=== PATIENT | female | born 1975 | race African-American/Black ===

== ENCOUNTER 2016-07-01 23:01 | Emergency (ER) | payer BC, OTHER ==
[2016-07-02] MEDS ORDERED: diphenhydrAMINE 50 MG CAP PO STA (01:45)
[2016-07-02] MEDS ORDERED: predniSONE 20 MG TAB PO STA (01:45)
--- NOTE | 2016-07-02 01:50 | ED ---
Skin/Abscess/FB HPI - General Chief complaint: Skin/Abscess/Foreign Body Stated complaint: Insect Bite Time Seen by Provider: 07/02/16 01:04 Source: patient, RN notes reviewed Mode of arrival: ambulatory Limitations: no limitations - History of Present Illness Initial comments: Patient is a 41-year-old female presents to the emergency room for evaluation of insect bite over right forearm. Patient states that she woke up from sleeping and noticed area of swelling over her forearm. Patient states she got bit by some sort of insect. Patient denies any history of ALLERGIC reactions to insect bites. Patient states throughout the day the areas gotten more and more swollen. Patient states she was at work and the area started to worry her so she thought she should be evaluated. Patient denies taking any Benadryl or applying any ointments over the area. Patient states the area itches and is slightly painful. Patient denies any redness or heat from the area. Patient denies any drainage or open sore from the area. Patient denies fevers or chills. - Related Data Home Medications Medication Instructions Recorded Confirmed Albuterol Inhaler [Ventolin Hfa 1 puff INHALATION DAILY PRN 09/20/14 11/22/15 Inhaler] Solifenacin Succinate [Vesicare] 5 mg PO QAM 09/20/14 11/22/15 Baclofen 30 mg PO TID 04/23/15 11/22/15 Cholecalciferol (Vitamin D3) 1 tab PO DAILY 04/23/15 11/22/15 [Vitamin D3] Loratadine [Claritin] 10 mg PO DAILY 04/23/15 11/22/15 predniSONE 20 mg PO BID 04/23/15 11/22/15 Previous Rx's Medication Instructions Recorded predniSONE 40 mg PO DAILY 3 Days 07/02/16 Allergies Allergy/AdvReac Type Severity Reaction Status Date / Time No Known Allergies Allergy Verified 07/01/16 23:15 Review of Systems ROS Statement: Those systems with pertinent positive or pertinent negative responses have been documented in the HPI. ROS Other: All systems not noted in ROS Statement are negative. Past Medical History Past Medical History: Asthma Additional Past Medical History / Comment(s): bipolar History of Any Multi-Drug Resistant Organisms: None Reported Past Surgical History: Tubal Ligation Additional Past Surgical History / Comment(s): D&C, cervical biopsy Past Psychological History: Bipolar Smoking Status: Current every day smoker Past Alcohol Use History: Occasional Past Drug Use History: Marijuana General Exam - General Exam Comments Initial Comments: Sitting in exam room in no acute distress. Limitations: no limitations General appearance: alert, in no apparent distress Head exam: Present: atraumatic, normocephalic, normal inspection Eye exam: Present: normal appearance ENT exam: Present: normal exam Neck exam: Present: normal inspection Respiratory exam: Absent: respiratory distress Right Forearm Wrist exam: Present: full ROM, other (2 cm circular erythematous area over the mid forearm small puncture wound. No drainage from the site. No redness or heat on palpating over the area. Nonfluctuant.) Hand Wrist exam: Present: normal inspection, full ROM. Absent: tenderness Neuro motor exam: Present: wrist extension intact, thumb opposition intact, thumb IP flexion intact, thumb adduction intact, fingers 2-5 abduction intact Vascular: Present: normal capillary refill (Capillary refill less than 2 seconds ), radial pulse (2+), ulnar pulse (2+) Back exam: Present: normal inspection Neurological exam: Present: alert, oriented X3, CN II-XII intact, normal gait Psychiatric exam: Present: normal affect, normal mood Skin exam: Present: warm, dry, intact, normal color. Absent: rash Course Vital Signs 07/01/16 07/02/16 23:13 01:56 Temperature 98.4 F 98 F Pulse Rate 79 78 Respiratory 16 18 Rate Blood Pressure 129/70 129/68 O2 Sat by Pulse 98 98 Oximetry Medical Decision Making - Medical Decision Making Patient is a 41-year-old female presents to the emergency room for evaluation of insect bite. Insect bite slightly edematous. Patient given Benadryl and prednisone. Advised patient to return for worsening symptoms, heat or redness from the area or fevers. Patient states she understands everything that was discussed with her. Case discussed with Dr. Yeung. Disposition Clinical Impression: Insect bite Disposition: HOME SELF-CARE Condition: Good Instructions: Insect Bite or Sting (ED) Additional Instructions: Take Benadryl every 4-6 hours. Take prednisone as directed. Please follow up with primary care provider in 1-2 days. If any new symptom arises, symptoms worsen or fever develops, return to ER as soon as possible. Prescriptions: predniSONE 40 mg PO DAILY 3 Days Referrals: Aislinn Aviles MD [Primary Care Provider] - 1-2 days Time of Disposition: 01:51
[2016-07-02 01:57] VITALS: BP 129/68; PULSE 78; RESP 18; TEMP 98
== END 2016-07-02 01:57 | disposition home or self-care (01) ==
LOC: EC 23:01
DX: S51.831A Puncture wound without foreign body of right forearm, initial encounter (principal); J45.909 Unspecified asthma, uncomplicated; F17.200 Nicotine dependence, unspecified, uncomplicated; Z79.52 Long term (current) use of systemic steroids; Z79.899 Other long term (current) drug therapy; W57.XXXA Bitten or stung by nonvenomous insect and other nonvenomous arthropods, initial encounter
CPT/HCPCS: 99281 ×2; J7512

== ENCOUNTER 2016-07-05 07:50 | Emergency (ER) | payer BC, OTHER ==
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
[2016-07-05 09:06] VITALS: BP 125/75; PULSE 72; RESP 16; TEMP 98.1
== END 2016-07-05 09:21 | disposition home or self-care (01) ==
LOC: EC 07:50
DX: S40.022A Contusion of left upper arm, initial encounter (principal); S40.021A Contusion of right upper arm, initial encounter; Y04.2XXA Assault by strike against or bumped into by another person, initial encounter; Y92.009 Unspecified place in unspecified non-institutional (private) residence as the place of occurrence of the external cause; H11.32 Conjunctival hemorrhage, left eye; S20.479A Other superficial bite of unspecified back wall of thorax, initial encounter; S01.312A Laceration without foreign body of left ear, initial encounter; Y04.1XXA Assault by human bite, initial encounter; R51 Headache; Z79.899 Other long term (current) drug therapy; F17.200 Nicotine dependence, unspecified, uncomplicated
CPT/HCPCS: 70450; 72125; 99284

== ENCOUNTER 2016-10-25 20:36 | Emergency (ER) | payer BC, OTHER ==
[2016-10-25 20:50] VITALS: BP 112/79; PULSE 103; RESP 18; TEMP 97.8
[2016-10-25] MEDS ORDERED: KETOROLAC 30 MG/ML 1 ML VIAL IM STA (21:05)
[2016-10-25] MEDS ORDERED: predniSONE 20 MG TAB PO STA (21:06)
--- NOTE | 2016-10-25 21:11 | ED ---
Back Pain [facility] - General Chief Complaint: Extremity Problem,Nontraumatic Stated Complaint: THIGH PAIN/SCIATICA Time Seen by Provider: 10/25/16 20:57 Source: patient Mode of arrival: ambulatory Limitations: no limitations - History of Present Illness Initial Comments: Patient is a 41-year-old female presenting to the emergency department with chief complaint of acute on chronic lumbar sacral back pain radiating into her right buttocks. Patient states that earlier today she was leaning over to catch her neighbors dog when she felt a sharp pain in her right buttocks. Patient states that pain has persisted throughout the day. Patient currently rates pain 7 out of 10, described as pulling and burning, exacerbated with sitting down and walking, relieved with laying down. No treatment prior to arrival. Patient states she has an appointment to see her primary care physician for problems with sciatica next week. Patient states she is taking naproxen and Flexeril at home but hasn't taken any today. Patient denies recent illness, fevers, nausea, vomiting, shortness of breath, chest pain, or abdominal pain. Patient denies urinary or fecal incontinence, or saddle anesthesia. Patient denies recent IV drug abuse or steroid intake. - Related Data Home Medications Medication Instructions Recorded Confirmed Albuterol Inhaler [Ventolin Hfa 1 puff INHALATION DAILY PRN 09/20/14 10/25/16 Inhaler] Cholecalciferol (Vitamin D3) 1 tab PO DAILY 04/23/15 10/25/16 [Vitamin D3] Loratadine [Claritin] 10 mg PO DAILY 04/23/15 10/25/16 Albuterol Nebulized [Ventolin 2.5 mg INHALATION Q6H 10/25/16 10/25/16 Nebulized] Cyclobenzaprine [Flexeril] 5 mg PO BID 10/25/16 10/25/16 Ipratropium [place] [Atrovent Hfa] 2 puff INHALATION QID PRN 10/25/16 10/25/16 Naproxen [Naproxen] 500 mg PO BID 10/25/16 10/25/16 Omeprazole [PriLOSEC] 20 mg PO DAILY 10/25/16 10/25/16 Previous Rx's Medication Instructions Recorded methylPREDNISolone Dose Pack 4 mg PO DIRECTED #21 package 10/25/16 [Medrol Dose Pack] Allergies Allergy/AdvReac Type Severity Reaction Status Date / Time No Known Allergies Allergy Verified 10/25/16 20:50 Review of Systems ROS Statement: Those systems with pertinent positive or pertinent negative responses have been documented in the HPI. ROS Other: All systems not noted in ROS Statement are negative. Past Medical History Past Medical History: Asthma, GERD/Reflux Additional Past Medical History / Comment(s): bipolar, test pos for TB, however has had testing and yrly xray with neg results since 2002, pt states she has several herniated/bulging discs in lower back History of Any Multi-Drug Resistant Organisms: None Reported Past Surgical History: Tubal Ligation Additional Past Surgical History / Comment(s): D&C, cervical biopsy Past Psychological History: Bipolar Smoking Status: Former smoker Past Alcohol Use History: Occasional Past Drug Use History: None Reported General Exam Limitations: no limitations General appearance: alert, in no apparent distress Head exam: Present: atraumatic, normocephalic Eye exam: Present: normal appearance. Absent: scleral icterus, conjunctival injection, periorbital swelling, periorbital tenderness ENT exam: Present: normal exam, mucous membranes moist, normal external ear exam Neck exam: Present: normal inspection, full ROM. Absent: tenderness, lymphadenopathy Respiratory exam: Present: normal lung sounds bilaterally. Absent: respiratory distress, wheezes, rales, rhonchi Cardiovascular Exam: Present: regular rate, tachycardia, normal heart sounds. Absent: systolic murmur GI/Abdominal exam: Present: soft, normal bowel sounds. Absent: tenderness Extremities exam: Present: normal inspection, full ROM, normal capillary refill. Absent: tenderness Back exam: Present: paraspinal tenderness (Right-sided), other (Pulses palpable) . Absent: full ROM (Decreased range of motion with flexion and extension.), CVA tenderness (R), CVA tenderness (L), vertebral tenderness Expanded Back exam: Present: saddle anesthesia, other (No foot drop noted) Back exam: Sciatic Notch Tenderness: Right, Negative Straight Leg Raising: Left , Right Neurological exam: Present: alert, oriented X3, abnormal gait (Antalgic). Absent: other (No neurological deficits noted) Psychiatric exam: Present: normal affect, normal mood Skin exam: Present: warm, dry, intact, normal color Course Vital Signs 10/25/16 20:44 Temperature 97.8 F Pulse Rate 103 H Respiratory 18 Rate Blood Pressure 112/79 O2 Sat by Pulse 98 Oximetry Medical Decision Making - Medical Decision Making Acute on chronic back pain with right-sided sciatica. Patient given 1 dose of Toradol IM and instructed to continue Flexeril and naproxen at home. Patient instructed to follow-up with primary care physician. Patient instructed to follow-up with orthopedic service for possible physical therapy if pain persists. Patient instructed to return to the emergency department if symptoms do not improve or get worse. Discharge instructions and return parameters reviewed. Disposition Clinical Impression: Sciatica of right side associated with disorder of lumbosacral spine Disposition: HOME SELF-CARE Condition: Good Instructions: Sciatica (ED), Piriformis Syndrome (ED), Lower Back Exercises (ED ) Additional Instructions: Continue Medrol Dosepak and muscle relaxers as needed. Continue Tylenol for pain. Follow-up with primary care physician as already scheduled. Follow-up with orthopedic service if symptoms persist. Please return to the emergency department with any new or worsening symptoms. Prescriptions: methylPREDNISolone Dose Pack [Medrol Dose Pack] 4 mg PO DIRECTED #21 package Referrals: Aislinn Aviles MD [Primary Care Provider] - 1-2 days Jos Carlin MD [STAFF PHYSICIAN] - 1-2 days Time of Disposition: 21:11
== END 2016-10-25 21:22 | disposition home or self-care (01) ==
LOC: EC 20:36
DX: M54.31 Sciatica, right side (principal); M48.9 Spondylopathy, unspecified; K21.9 Gastro-esophageal reflux disease without esophagitis; J45.909 Unspecified asthma, uncomplicated; Z79.1 Long term (current) use of non-steroidal anti-inflammatories (NSAID); Z79.899 Other long term (current) drug therapy; Z87.891 Personal history of nicotine dependence
CPT/HCPCS: 99283; 96372; J1885; J7512

== ENCOUNTER 2017-05-01 22:07 | Emergency (ER) | payer OTHER ==
[2017-05-01 22:12] VITALS: BP 128/68; PULSE 76; RESP 18; TEMP 98.2
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
--- NOTE | 2017-05-01 23:02 | XR ---
EXAMINATION TYPE: XR foot complete RT DATE OF EXAM: 05/01/2017 COMPARISON: NONE HISTORY: Pain TECHNIQUE: 3 views FINDINGS: Metatarsals are intact. There is a moderate-sized plantar calcaneal spur. I see no fracture nor dislocation. IMPRESSION: Calcaneal spurring. No fracture. No evidence of inflammatory arthritis.
== END 2017-05-01 22:56 | disposition home or self-care (01) ==
LOC: EC 22:07
DX: M77.31 Calcaneal spur, right foot (principal); Z87.891 Personal history of nicotine dependence; Z79.899 Other long term (current) drug therapy
CPT/HCPCS: 99283

== ENCOUNTER 2017-06-21 12:55 | Emergency (ER) | payer OTHER ==
[2017-06-21 13:07] VITALS: BP 140/63; PULSE 88; RESP 20; TEMP 97.8
--- NOTE | 2017-06-21 13:15 | ED ---
General Adult HPI - General Chief complaint: Extremity Injury, Lower Stated complaint: Swollen R Ankle Time Seen by Provider: 06/21/17 13:09 Source: patient, RN notes reviewed Mode of arrival: ambulatory Limitations: no limitations - History of Present Illness Initial comments: Patient 42-year-old female who presents emergency room today with a chief complaint of injury to the right ankle that occurred last night. She is not sure how she injured it. She does not that she was drinking. She believes she rolled appear does have pain over the medial and lateral aspects of the right ankle. She states is worse with ambulation. She denies any other injury or complaints. Patient denies any recent fever, chills, shortness of breath, chest pain, back pain, abdominal pain, nausea or vomiting, numbness or tingling, headaches or visual changes, or any other complaints. - Related Data Home Medications Medication Instructions Recorded Confirmed Albuterol Inhaler [Ventolin Hfa 1 - 2 puff INHALATION RT-Q6H PRN 09/20/14 Inhaler] Loratadine [Claritin] 10 mg PO DAILY PRN 04/23/15 05/01/17 Albuterol Nebulized [Ventolin 2.5 mg INHALATION RT-Q6H PRN 10/25/16 05/01/17 Nebulized] Ipratropium [place] [Atrovent Hfa] 2 puff INHALATION RT-QID PRN 10/25/16 Naproxen [Naproxen] 500 mg PO BID PRN 10/25/16 05/01/17 Omeprazole [PriLOSEC] 20 mg PO BID PRN 10/25/16 05/01/17 Ergocalciferol (Vitamin D2) 50,000 unit PO CHU 05/01/17 05/01/17 [Vitamin D2] Previous Rx's Medication Instructions Recorded Ibuprofen [Motrin] 600 mg PO Q6HR PRN #30 day 06/21/17 Allergies Allergy/AdvReac Type Severity Reaction Status Date / Time No Known Allergies Allergy Verified 06/21/17 13:07 Review of Systems ROS Statement: Those systems with pertinent positive or pertinent negative responses have been documented in the HPI. ROS Other: All systems not noted in ROS Statement are negative. Past Medical History Past Medical History: Asthma, GERD/Reflux Additional Past Medical History / Comment(s): bipolar, test pos for TB, however has had testing and yrly xray with neg results since 2002, pt states she has several herniated/bulging discs in lower back History of Any Multi-Drug Resistant Organisms: None Reported Past Surgical History: Tubal Ligation Additional Past Surgical History / Comment(s): D&C, cervical biopsy Past Psychological History: Bipolar Smoking Status: Former smoker Past Alcohol Use History: Occasional Past Drug Use History: Marijuana General Exam - General Exam Comments Initial Comments: General: The patient is awake and alert, in no distress, and does not appear acutely ill. Neck: The neck is supple, there is no tenderness or JVD. Musculoskeletal: Patient does have some mild swelling down over the lateral aspect of the right ankle. She shows good range of motion both plantar and dorsiflexion. No tenderness to the right knee. No tenderness down into the digits. Mild tenderness over the fourth and fifth proximal metatarsal. Sensations are intact. Patient does have mild tenderness over medial malleolus. No tenderness over the lateral. Increased tenderness greatest in the ATFL area. Pulses equal bilaterally 2+ Neurological: A&O x 3. CN II-XII intact, There are no obvious motor or sensory deficits. Coordination appears grossly intact. Speech is normal. Skin: Skin is warm and dry and no rashes or lesions are noted. Psychiatric: Normal mood and affect. Limitations: no limitations Course Vital Signs 06/21/17 13:04 Temperature 97.8 F Pulse Rate 88 Respiratory 20 Rate Blood Pressure 140/63 O2 Sat by Pulse 99 Oximetry Medical Decision Making - Medical Decision Making Patient's x-rays have been reviewed and are negative for any acute fracture dislocation. Results were discussed with the patient. Patient given Aircast splint here in the emergency room for stability when up and moving around. Advised not to sleep with this on. Advised to follow-up with the family doctor or orthopedics for repeat x-rays in 7-10 days if symptoms persist. Advised to ice elevate the affected area and use ibuprofen for pain advised return for any other concerns. Disposition Clinical Impression: Ankle sprain Disposition: HOME SELF-CARE Condition: Good Instructions: Ankle Sprain (ED) Additional Instructions: Please continue to ice elevate the affected area at least 4 times daily for 20 minutes at a time. Please use splint when up and moving around but do not sleep with it on. Please follow-up the family doctor or orthopedics in 7-10 days if symptoms persist for repeat x-rays as discussed. Please use ibuprofen for pain. Please return to emergency room for any other concerns. Prescriptions: Ibuprofen [Motrin] 600 mg PO Q6HR PRN #30 day PRN Reason: Pain Referrals: Aislinn Aviles MD [Primary Care Provider] - 1-2 days Jos Carlin MD [STAFF PHYSICIAN] - 1-2 days Time of Disposition: 13:44
--- NOTE | 2017-06-21 13:35 | XR ---
EXAMINATION TYPE: XR foot complete RT, XR ankle complete RT , 6 VIEWS DATE OF EXAM ORDERED: 06/21/2017 HISTORY: Pain. COMPARISON: Previous study dated 05/01/2017. FINDINGS: No fracture, dislocation or other acute osseous lesion is seen about the foot. There is a plantar calcaneal spur. Osseous structures about the ankle are normal. No fracture, dislocation or ankle joint effusion is se en. There are phleboliths in the anterior soft tissues of the lower leg. IMPRESSION: 1. NO ACUTE OSSEOUS LESION. 2. PLANTAR CALCANEAL SPUR.
== END 2017-06-21 14:08 | disposition home or self-care (01) ==
LOC: EC 12:55
DX: S93.401A Sprain of unspecified ligament of right ankle, initial encounter (principal); Z87.891 Personal history of nicotine dependence; Z79.899 Other long term (current) drug therapy; X58.XXXA Exposure to other specified factors, initial encounter
CPT/HCPCS: 99283

== ENCOUNTER 2017-07-02 18:54 | Emergency (ER) | payer OTHER ==
[2017-07-02 19:07] VITALS: RESP 18
[2017-07-02] MEDS ORDERED: SODIUM CHLORIDE 0.9% 500 ML IV STA (19:14)
[2017-07-02] MEDS ORDERED: KETOROLAC 30 MG/ML 1 ML VIAL IVP STA (19:14)
--- NOTE | 2017-07-02 19:27 | ED ---
General Adult HPI - General Source: patient, RN notes reviewed Mode of arrival: ambulatory Limitations: no limitations <Manjeet Lara - Last Filed: 07/02/17 21:08> <Phillip Yeung - Last Filed: 07/02/17 21:53> - General Chief complaint: Abdominal Pain Stated complaint: Abd Pain Time Seen by Provider: 07/02/17 19:00 - History of Present Illness Initial comments: This is a 42-year-old female presents emergency Department complaining of right lower pelvic pain. Patient states it was sudden onset 4:00 while she was at work. Patient states it made her nauseated and she vomited times one. Patient states she also has some loose bowel movements this morning. Patient states she has no upper abdominal pain whatsoever. Patient denies any chest pain difficulty breathing shortness breath per patient denies any recent fever chills or cough. Patient denies any dysuria hematuria urinary frequency. Patient denies any patient denies numbness weakness. Patient denies any vaginal bleeding or abnormal discharge. (Manjeet Lara) - Related Data Home Medications Medication Instructions Recorded Confirmed Albuterol Inhaler [Ventolin Hfa 1 - 2 puff INHALATION RT-Q6H PRN 09/20/14 Inhaler] Loratadine [Claritin] 10 mg PO DAILY PRN 04/23/15 07/02/17 Albuterol Nebulized [Ventolin 2.5 mg INHALATION RT-Q6H PRN 10/25/16 07/02/17 Nebulized] Ipratropium [place] [Atrovent Hfa] 2 puff INHALATION RT-BID PRN 10/25/16 Omeprazole [PriLOSEC] 20 mg PO BID PRN 10/25/16 07/02/17 Ergocalciferol (Vitamin D2) 50,000 unit PO CHU 05/01/17 07/02/17 [Vitamin D2] Acetaminophen Tab [Tylenol Tab] 650 mg PO Q6H PRN 07/02/17 07/02/17 Cyclobenzaprine [Flexeril] 10 mg PO BID 07/02/17 07/02/17 Diclofenac Sodium [Voltaren] 75 mg PO BID 07/02/17 07/02/17 Ferrous Sulfate [Feosol] 650 mg PO DAILY 07/02/17 07/02/17 Allergies Allergy/AdvReac Type Severity Reaction Status Date / Time No Known Allergies Allergy Verified 07/02/17 19:22 Review of Systems ROS Other: All systems not noted in ROS Statement are negative. <Manjeet Lara - Last Filed: 07/02/17 21:08> ROS Other: All systems not noted in ROS Statement are negative. <Phillip Yeung - Last Filed: 07/02/17 21:53> ROS Statement: Those systems with pertinent positive or pertinent negative responses have been documented in the HPI. Past Medical History Past Medical History: Asthma, GERD/Reflux Additional Past Medical History / Comment(s): bipolar, test pos for TB, however has had testing and yrly xray with neg results since 2002, pt states she has several herniated/bulging discs in lower back History of Any Multi-Drug Resistant Organisms: None Reported Past Surgical History: Tubal Ligation, Uterine Ablation Additional Past Surgical History / Comment(s): D&C, cervical biopsy Past Psychological History: Bipolar Smoking Status: Former smoker Past Alcohol Use History: Occasional Past Drug Use History: Marijuana <LaraManjeet - Last Filed: 07/02/17 21:08> General Exam Limitations: no limitations <LaraManjeet - Last Filed: 07/02/17 21:08> <AnjanaPhillip - Last Filed: 07/02/17 21:53> - General Exam Comments Initial Comments: GENERAL: Patient is well-developed and well-nourished. Patient is nontoxic and well- hydrated and is in mild distress. ENT: Neck is soft and supple. No significant lymphadenopathy is noted. Oropharynx is clear. Moist mucous membranes. Neck has full range of motion without eliciting any pain. EYES: The sclera were anicteric and conjunctiva were pink and moist. Extraocular movements were intact and pupils were equal round and reactive to light. Eyelids were unremarkable. PULMONARY: Unlabored respirations. Good breath sounds bilaterally. No audible rales rhonchi or wheezing was noted. CARDIOVASCULAR: There is a regular rate and rhythm without any murmurs gallops or rubs. ABDOMEN: Patient has some right pelvic tenderness. No palpable organomegaly was noted. There is no palpable pulsatile mass. SKIN: Skin is clear with no lesions or rashes and otherwise unremarkable. NEUROLOGIC: Patient is alert and oriented x3. Cranial nerves II through XII are grossly intact. Motor and sensory are also intact. Normal speech, volume and content. Symmetrical smile. MUSCULOSKELETAL: Normal extremities with adequate strength and full range of motion. No lower extremity swelling or edema. No calf tenderness. LYMPHATICS: No significant lymphadenopathy is noted PSYCHIATRIC: Normal psychiatric evaluation. (Manjeet Lara) Vital Signs 07/02/17 07/02/17 19:03 20:40 Temperature 98.9 F Pulse Rate 78 69 Respiratory 18 18 Rate Blood Pressure 120/70 111/62 O2 Sat by Pulse 99 98 Oximetry Medical Decision Making - Lab Data Result diagrams: 07/02/17 19:44 07/02/17 19:44 <Manjeet Lara - Last Filed: 07/02/17 21:08> - Lab Data Result diagrams: 07/02/17 19:44 07/02/17 19:44 <Phillip Yeung - Last Filed: 07/02/17 21:53> - Medical Decision Making Physical be taking over the care of this patient at 9 PM (Manjeet Lara) - Lab Data Lab Results 07/02/17 07/02/17 07/02/17 Range/Units 19:44 19:44 19:44 WBC 12.5 H (3.8-10.6) k/uL RBC 4.45 (3.80-5.40) m/uL Hgb 13.7 (11.4-16.0) gm/dL Hct 39.5 (34.0-46.0) % MCV 88.8 (80.0-100.0) fL MCH 30.8 (25.0-35.0) pg MCHC 34.7 (31.0-37.0) g/dL RDW 12.7 (11.5-15.5) % Plt Count 466 H (150-450) k/uL Neutrophils % 82 % Lymphocytes % 12 % Monocytes % 3 % Eosinophils % 1 % Basophils % 0 % Neutrophils # 10.3 H (1.3-7.7) k/uL Lymphocytes # 1.5 (1.0-4.8) k/uL Monocytes # 0.4 (0-1.0) k/uL Eosinophils # 0.2 (0-0.7) k/uL Basophils # 0.1 (0-0.2) k/uL Sodium 140 (137-145) mmol/L Potassium 4.2 (3.5-5.1) mmol/L Chloride 107 (98-107) mmol/L Carbon Dioxide 25 (22-30) mmol/L Anion Gap 8 mmol/L BUN 10 (7-17) mg/dL Creatinine 0.70 (0.52-1.04) mg/dL Est GFR (CKD-EPI)AfAm >90 (>60 ml/min/1.73 sqM) Est GFR (CKD-EPI)NonAf >90 (>60 ml/min/1.73 sqM) Glucose 92 (74-99) mg/dL Calcium 9.9 (8.4-10.2) mg/dL Total Bilirubin 0.2 (0.2-1.3) mg/dL AST 16 (14-36) U/L ALT 20 (9-52) U/L Alkaline Phosphatase 65 (38-126) U/L Total Protein 7.5 (6.3-8.2) g/dL Albumin 4.4 (3.5-5.0) g/dL Amylase 60 (30-110) U/L Lipase 184 (23-300) U/L Urine Color Yellow Urine Appearance Cloudy H (Clear) Urine pH 6.5 (5.0-8.0) Ur Specific [place] 1.027 (1.001-1.035) Urine Protein 1+ H (Negative) Urine Glucose (UA) Negative (Negative) Urine Ketones Negative (Negative) Urine Blood Negative (Negative) Urine Nitrite Negative (Negative) Urine Bilirubin Negative (Negative) Urine Urobilinogen <2.0 (<2.0) mg/dL Ur Leukocyte Esterase Negative (Negative) Urine RBC 12 H (0-5) /hpf Urine WBC 3 (0-5) /hpf Ur Squamous Epith Cells 3 (0-4) /hpf Calcium Oxalate Crystal Occasional H (None) /hpf Hyaline Casts 4 H (0-2) /lpf Urine Mucus Many H (None) /hpf Disposition <Manjeet Lara - Last Filed: 07/02/17 21:08> <Phillip Yeung - Last Filed: 07/02/17 21:53> Clinical Impression: Abdominal pain, Hematuria Disposition: HOME SELF-CARE Condition: Good Instructions: Abdominal Pain (ED), Hematuria (ED) Referrals: Aislinn Aviles MD [Primary Care Provider] - 1-2 days
[2017-07-02 19:55] LABS: Basophils # (A) 0.1 k/uL (0-0.2); Basophils % (A) 0 %; Eosinophils # (A) 0.2 k/uL (0-0.7); Eosinophils % (A) 1 %; HCT 39.5 % (34.0-46.0); HGB 13.7 gm/dL (11.4-16.0); Lymphocytes # (A) 1.5 k/uL (1.0-4.8); Lymphocytes % (A) 12 %; MCH 30.8 pg (25.0-35.0); MCHC 34.7 g/dL (31.0-37.0); MCV 88.8 fL (80.0-100.0); Mean Platelet Volume 6.6; Monocytes # (A) 0.4 k/uL (0-1.0); Monocytes % (A) 3 %; Neutrophils # (A) 10.3 k/uL (1.3-7.7); Neutrophils % (A) 82 %; Platelet Count 466 k/uL (150-450); RBC 4.45 m/uL (3.80-5.40); RDW 12.7 % (11.5-15.5); WBC 12.5 k/uL (3.8-10.6)
[2017-07-02 19:58] LABS: Appearance,Urine Cloudy (Clear); Bilirubin,Urine Negative (Negative); Blood,Urine Negative (Negative); Calcium Oxalate Crystals,Urine Occasional /hpf; Color,Urine Yellow; Glucose,Urine (UA) Negative (Negative); Hyaline Casts,Urine 4 /lpf (0-2); Ketones,Urine Negative (Negative); Leukocyte Esterase,Urine Negative (Negative); Mucus,Urine Many /hpf; PH, Urine 6.5 (5.0-8.0); Protein,Urine 1+ (Negative); RBC,Urine 12 /hpf (0-5); Specific Gravity,Urine 1.027 (1.001-1.035); Squamous Epithelial Cell,Urine 3 /hpf (0-4); Urobilinogen,Urine <2.0 mg/dL (<2.0); WBC,Urine 3 /hpf (0-5)
[2017-07-02 20:09] LABS: ALT 20 U/L (9-52); AST 16 U/L (14-36); Albumin 4.4 g/dL (3.5-5.0); Alkaline Phosphatase 65 U/L (38-126); Amylase 60 U/L (30-110); Anion Gap 8 mmol/L; Blood Urea Nitrogen 10 mg/dL (7-17); Calcium 9.9 mg/dL (8.4-10.2); Carbon Dioxide 25 mmol/L (22-30); Chloride 107 mmol/L (98-107); Glucose 92 mg/dL (74-99); Lipase 184 U/L (23-300); Potassium 4.2 mmol/L (3.5-5.1); Sodium 140 mmol/L (137-145); Total Bilirubin 0.2 mg/dL (0.2-1.3); Total Protein 7.5 g/dL (6.3-8.2)
--- NOTE | 2017-07-02 21:02 | US ---
EXAMINATION TYPE: US transvaginal DATE OF EXAM: 07/02/2017 COMPARISON: NONE CLINICAL HISTORY: Pain. RLQ and pelvic pain. Patient had a uterine ablation. TECHNIQUE: Transvaginal (TV). EXAM MEASUREMENTS: Uterus: 7.8 x 4.5 x 4.2 cm Endometrial Stripe: Not well visualized. Right Ovary: 3.1 x 1.6 x 1.6 cm Left Ovary: 2.9 x 1.4 x 2.0 cm 1. Uterus: Anteverted Anechoic area seen measuring .3 x .6 x .6cm 2. Endometrium: Not well visualized 3. Right Ovary: wnl 4. Left Ovary: wnl Spectral, color and waveform doppler imaging shows good arterial and venous flow within the ovaries ; 5. Bilateral Adnexa: wnl 6. Posterior cul-de-sac: wnl Heterogenous uterus. Anechoic round area seen in uterus measuring .3 x .6 x .6cm. Possible small cyst IMPRESSION: Heterogeneous uterus, no significant finding is seen to palpation symptoms. Endometrium n ot well visualized after ablation.
--- NOTE | 2017-07-02 21:35 | CT ---
EXAMINATION TYPE: CT abdomen pelvis wo con DATE OF EXAM: 07/02/2017 HISTORY: Generalized pain with nausea and hematuria CT DLP: 465.7 mGycm. Automated Exposure Control for Dose Reduction was Utilized. TECHNIQUE: CT scan of the abdomen and pelvis is performed without oral or IV contrast. COMPARISON: CT abdomen and pelvis May 31, 2014 FINDINGS: Within the limitations of a non-contrast study, the following observations are made. LUNG BASES: No significant abnormality is appreciated. LIVER/GB: No significant abnormality is appreciated. PANCREAS: No significant abnormality is seen. SPLEEN: No significant abnormality is seen. ADRENALS: No significant abnormality is seen. KIDNEYS: No renal stones or hydronephrosis is present bilaterally. No intraluminal calculus is seen w ithin bladder. BOWEL: No suspicious small or large bowel dilatation. Normal-appearing appendix is seen in the right upper pelvis from cecum GENITAL ORGANS:. Scattered pelvic phleboliths are redemonstrated. Anteverted uterus is seen. LYMPH NODES: No greater than 1cm abdominal or pelvic lymph nodes are appreciated. OSSEOUS STRUCTURES: No significant abnormality is seen. OTHER: No significant additional abnormality is seen. IMPRESSION: No renal stones or hydronephrosis is seen bilaterally. No suspicious acute finding identi fied on noncontrast study.
[2017-07-02 22:17] VITALS: BP 120/73; PULSE 74; TEMP 98.3
== END 2017-07-02 22:16 | disposition home or self-care (01) ==
LOC: EC 18:54
DX: R10.2 Pelvic and perineal pain (principal); R31.9 Hematuria, unspecified; R11.2 Nausea with vomiting, unspecified; Z87.891 Personal history of nicotine dependence; Z79.899 Other long term (current) drug therapy; Z79.1 Long term (current) use of non-steroidal anti-inflammatories (NSAID)
CPT/HCPCS: 36415; 80053; 82150; 83690; 85025; 81001; 93975; 76830; 74176; 99284; 96374; 96361; J1885

== ENCOUNTER 2017-07-06 21:15 | Emergency (ER) | payer OTHER ==
[2017-07-06 21:22] VITALS: BP 116/62; PULSE 71; RESP 18; TEMP 98.6
[2017-07-06] MEDS ORDERED: ACETAMINOPHEN TAB 500 MG TAB PO STA (21:46)
[2017-07-06] MEDS ORDERED: IBUPROFEN 600 MG TAB PO STA (21:46)
--- NOTE | 2017-07-06 21:52 | ED ---
General Adult HPI - General Chief complaint: ENT Stated complaint: sore throat Time Seen by Provider: 07/06/17 21:26 Source: patient, RN notes reviewed Mode of arrival: ambulatory Limitations: no limitations - History of Present Illness Initial comments: 42-year-old female presents to the emergency department with a chief complaint of cough and congestion. She states she's been sick for like 3 days now. She states that she felt fever is but never took it. She states no nausea vomiting no cough. There is just been congestion sore throat. Patient's significant other had similar like symptoms. There is concerned due to the continued congestion so she thought that she should be seen. Patient denies any recent fever, chills, shortness of breath, chest pain, back pain, abdominal pain, nausea vomiting, numbness or tingling, dysuria or hematuria, constipation or diarrhea, headaches or visual changes, or any other current symptoms. - Related Data Home Medications Medication Instructions Recorded Confirmed Albuterol Inhaler [Ventolin Hfa 1 - 2 puff INHALATION RT-Q6H PRN 09/20/14 Inhaler] Loratadine [Claritin] 10 mg PO DAILY PRN 04/23/15 07/06/17 Albuterol Nebulized [Ventolin 2.5 mg INHALATION RT-Q6H PRN 10/25/16 07/06/17 Nebulized] Ipratropium [place] [Atrovent Hfa] 2 puff INHALATION RT-BID PRN 10/25/16 Omeprazole [PriLOSEC] 20 mg PO BID PRN 10/25/16 07/06/17 Ergocalciferol (Vitamin D2) 50,000 unit PO CHU 05/01/17 07/06/17 [Vitamin D2] Acetaminophen Tab [Tylenol Tab] 650 mg PO Q6H PRN 07/02/17 07/06/17 Cyclobenzaprine [Flexeril] 10 mg PO BID 07/02/17 07/06/17 Diclofenac Sodium [Voltaren] 75 mg PO BID 07/02/17 07/06/17 Ferrous Sulfate [Feosol] 650 mg PO DAILY 07/02/17 07/06/17 Previous Rx's Medication Instructions Recorded predniSONE 50 mg PO DAILY #3 tab 07/06/17 Allergies Allergy/AdvReac Type Severity Reaction Status Date / Time No Known Allergies Allergy Verified 07/06/17 21:35 Review of Systems ROS Statement: Those systems with pertinent positive or pertinent negative responses have been documented in the HPI. ROS Other: All systems not noted in ROS Statement are negative. Past Medical History Past Medical History: Asthma, GERD/Reflux Additional Past Medical History / Comment(s): bipolar, test pos for TB, however has had testing and yrly xray with neg results since 2002, pt states she has several herniated/bulging discs in lower back History of Any Multi-Drug Resistant Organisms: None Reported Past Surgical History: Tubal Ligation, Uterine Ablation Additional Past Surgical History / Comment(s): D&C, cervical biopsy Past Psychological History: Bipolar Smoking Status: Former smoker Past Alcohol Use History: Occasional Past Drug Use History: Marijuana General Exam - General Exam Comments Initial Comments: General exam: Alert, active, comfortable in no apparent distress Head: Normocephalic Eyes: Normal reaction of pupils, equal size, normal range of extraocular motion Ears: normal external ear canals, pink tympanic membranes with normal cone of light Nose: clear with pink turbinates Throat: no erythema or exudates with normal sized tonsils Neck: no masses, no nuchal rigidity Chest: no chest wall deformity Lungs: equal air entry with no crackles or wheeze CVS: S1 and S2 normal with no audible mumurs, regular rhythm Abdomen: no hepatosplenomegaly, normal bowel sounds, no guarding or rigidity Spine: no scoliosis or deformity Skin: no rashes Neurological: No focal deficits, tone is normal in all 4 extremities Limitations: no limitations Course Vital Signs 07/06/17 21:19 Temperature 98.6 F Pulse Rate 71 Respiratory 18 Rate Blood Pressure 116/62 O2 Sat by Pulse 100 Oximetry Medical Decision Making - Medical Decision Making 42-year-old female presents for cough and congestion. At this time we discussed most likely due to a viral like syndrome. We discussed continuing Motrin Tylenol. We discussed return parameters and follow-up and all questions. Patient family stated they understood and management this plan. All questions have been answered. This time the patient will be discharged home. - Lab Data Lab Results 07/06/17 07/06/17 Range/Units 21:25 21:35 Influenza Type A RNA Not Detected (Not Detectd) Influenza Type B (PCR) Not Detected (Not Detectd) Group A Strep Rapid Negative (Negative) Disposition Clinical Impression: Upper respiratory infection Disposition: HOME SELF-CARE Condition: Stable Instructions: Upper Respiratory Infection (ED) Additional Instructions: Please use medication as discussed. Please follow up with family doctor if symptoms have not improved over the next two days. Please return to the emergency room if your symptoms increase or worsen or for any other concerns. Prescriptions: predniSONE 50 mg PO DAILY #3 tab Referrals: Aislinn Aviles MD [Primary Care Provider] - 1-2 days Time of Disposition: 21:58
== END 2017-07-06 22:07 | disposition home or self-care (01) ==
LOC: EC 21:15
DX: J06.9 Acute upper respiratory infection, unspecified (principal); Z87.891 Personal history of nicotine dependence; Z79.1 Long term (current) use of non-steroidal anti-inflammatories (NSAID); Z79.899 Other long term (current) drug therapy
CPT/HCPCS: 87081; 87430; 87502; 99283

== ENCOUNTER 2017-08-23 11:01 | Emergency (ER) | payer OTHER ==
[2017-08-23 11:07] VITALS: BP 113/76; PULSE 16; RESP 86; TEMP 98
--- NOTE | 2017-08-23 11:21 | ED ---
General Adult HPI - General Chief complaint: Extremity Injury, Upper Stated complaint: Shoulder Pain Time Seen by Provider: 08/23/17 11:09 Source: patient Mode of arrival: ambulatory Limitations: no limitations - History of Present Illness Initial comments: Patient is a 42-year-old female presenting for left sided neck pain. She states that this is been present for the last 2-3 days and she denies any kind of injury including MVAs, cervical manipulation by chiropractor. She states that she is not taking her Flexeril for which she has been prescribed for her chronic right-sided neck pain. She believes that she may have slept on it wrong and it feels like a crick in her neck that is worse with movement. She states that the pain kind of extends into the left shoulder as well. She denies any neurologic symptoms including but not limited to changes in vision, dizziness, lightheadedness. - Related Data Home Medications Medication Instructions Recorded Confirmed Albuterol Inhaler [Ventolin Hfa 1 - 2 puff INHALATION RT-Q6H PRN 09/20/14 Inhaler] Loratadine [Claritin] 10 mg PO DAILY PRN 04/23/15 07/06/17 Albuterol Nebulized [Ventolin 2.5 mg INHALATION RT-Q6H PRN 10/25/16 07/06/17 Nebulized] Ipratropium [place] [Atrovent Hfa] 2 puff INHALATION RT-BID PRN 10/25/16 Omeprazole [PriLOSEC] 20 mg PO BID PRN 10/25/16 07/06/17 Ergocalciferol (Vitamin D2) 50,000 unit PO CHU 05/01/17 07/06/17 [Vitamin D2] Acetaminophen Tab [Tylenol Tab] 650 mg PO Q6H PRN 07/02/17 07/06/17 Cyclobenzaprine [Flexeril] 10 mg PO BID 07/02/17 07/06/17 Diclofenac Sodium [Voltaren] 75 mg PO BID 07/02/17 07/06/17 Ferrous Sulfate [Feosol] 650 mg PO DAILY 07/02/17 07/06/17 Previous Rx's Medication Instructions Recorded predniSONE 50 mg PO DAILY #3 tab 07/06/17 Lidocaine 5% Oint [Xylocaine 5% 1 applic TOPICAL DAILY PRN #1 tube 08/23/17 Oint] Methocarbamol [Robaxin] 500 mg PO TID #20 tab 08/23/17 Allergies Allergy/AdvReac Type Severity Reaction Status Date / Time No Known Allergies Allergy Verified 07/06/17 21:35 Review of Systems ROS Statement: Those systems with pertinent positive or pertinent negative responses have been documented in the HPI. Constitutional: Negative for chills, fatigue and fever. HENT: Negative for congestion. Respiratory: Negative for chest tightness, shortness of breath and wheezing. Negative for cough Cardiovascular: Negative for chest pain and palpitations. Gastrointestinal: Negative for abdominal pain. Negative for abdominal distention , diarrhea, nausea and vomiting. Genitourinary: Negative for dysuria. Musculoskeletal: Negative for back pain, positive for neck pain and neck stiffness. Skin: Negative for color change. Neurological: Negative for dizziness, speech difficulty, weakness and light- headedness. Psychiatric/Behavioral: Negative for agitation and confusion. The patient is not nervous/anxious. ROS Other: All systems not noted in ROS Statement are negative. Past Medical History Past Medical History: Asthma, GERD/Reflux Additional Past Medical History / Comment(s): bipolar, test pos for TB, however has had testing and yrly xray with neg results since 2002, pt states she has several herniated/bulging discs in lower back History of Any Multi-Drug Resistant Organisms: None Reported Past Surgical History: Tubal Ligation, Uterine Ablation Additional Past Surgical History / Comment(s): D&C, cervical biopsy Past Psychological History: Bipolar Smoking Status: Former smoker Past Alcohol Use History: Occasional Past Drug Use History: Marijuana General Exam - General Exam Comments Initial Comments: Constitutional: Pt is oriented to person, place, and time. Pt appears well- developed and well-nourished. No distress. HENT: Head: Normocephalic and atraumatic. Eyes: EOM are normal. Neck: Normal range of motion. Neck supple. Cardiovascular: Normal rate, regular rhythm, S1 normal, S2 normal and normal heart sounds. Exam reveals no gallop and no friction rub. No murmur heard. Pulmonary/Chest: Effort normal and breath sounds normal. No tachypnea and no bradypnea. No respiratory distress. No wheezes or rales noted. Abdominal: Soft. Bowel sounds are normal. Pt exhibits no shifting dullness, no distension, no pulsatile liver, no fluid wave, no abdominal bruit and no ascites. There is no tenderness. There is no rigidity, no rebound, no guarding, no tenderness at McBurney's point and negative Cruz's sign. Musculoskeletal: Normal range of motion. Hypertonicity of the left trapezius muscle. No tenderness to palpation of CT spine, T-spine, L-spine. Normal range of motion of the left shoulder with no point tenderness. Neurological: Pt is alert and oriented to person, place, and time. No cranial nerve deficit. Skin: Skin is warm and dry. No rash noted. Pt is not diaphoretic. No erythema. No pallor. Psychiatric: Pt has a normal mood and affect. Pt behavior is normal. Thought content normal. Limitations: no limitations Course Vital Signs 08/23/17 11:04 Temperature 98.0 F Pulse Rate 16 L Respiratory 86 H Rate Blood Pressure 113/76 O2 Sat by Pulse 99 Oximetry Medical Decision Making - Medical Decision Making Physical exam findings and HPI were consistent with muscle strain. There is no focal neurologic deficits on physical exam warranting imaging. Patient was advised that she could try Robaxin instead of Flexeril but advised not to take both medications. She was also given a prescription for lidocaine. She was recommended to follow-up with her PCP within the next few days or return to emergency department if symptoms became much more severe. Patient was agreeable to plan. Disposition Clinical Impression: Neck pain without injury Disposition: HOME SELF-CARE Condition: Good Instructions: Neck Pain (ED) Prescriptions: Lidocaine 5% Oint [Xylocaine 5% Oint] 1 applic TOPICAL DAILY PRN #1 tube PRN Reason: Pain Methocarbamol [Robaxin] 500 mg PO TID #20 tab Is patient prescribed a controlled substance at d/c from ED?: No Referrals: Aislinn Aviles MD [Primary Care Provider] - 1-2 days Time of Disposition: 11:21
== END 2017-08-23 11:31 | disposition home or self-care (01) ==
LOC: EC 11:01
DX: M54.2 Cervicalgia (principal); M25.512 Pain in left shoulder; J45.909 Unspecified asthma, uncomplicated; K21.9 Gastro-esophageal reflux disease without esophagitis; Z87.891 Personal history of nicotine dependence; Z79.1 Long term (current) use of non-steroidal anti-inflammatories (NSAID); Z79.899 Other long term (current) drug therapy
CPT/HCPCS: 99283

== ENCOUNTER 2017-10-17 00:03 | Emergency (ER) | payer OTHER ==
[2017-10-17 00:09] VITALS: BP 123/64; PULSE 85; RESP 18; TEMP 98.2
[2017-10-17] MEDS ORDERED: KETOROLAC 30 MG/ML 1 ML VIAL IM STA (00:44)
--- NOTE | 2017-10-17 01:21 | XR ---
EXAMINATION TYPE: XR knee complete LT DATE OF EXAM: 10/17/2017 COMPARISON: 07/26/2011 HISTORY: Knee pain TECHNIQUE: 3 views FINDINGS: There is some spurring of the medial femoral and tibial condyles. I see no fracture nor dis location. There is no sign of joint effusion. There is no significant joint space narrowing. IMPRESSION: Hypertrophic degenerative spur formation without significant joint space narrowing. This has progressed slightly compared to old exam. No fracture.
--- NOTE | 2017-10-17 01:27 | ED ---
Lower Extremity Injury HPI - General Chief Complaint: Extremity Injury, Lower Stated Complaint: L Knee pain Time Seen by Provider: 10/17/17 00:13 Source: patient Mode of arrival: ambulatory Limitations: no limitations - History of Present Illness Initial Comments: 42-year-old female patient presents the emergency department today for evaluation of left knee pain and swelling. Patient states his been going on for the last couple of days. Patient states that she has experienced similar symptoms in the past but was never told what was causing her symptoms. Patient denies any injury to the knee. Denies any redness, warmth, or fevers. Denies any difficulty with range of motion. States she has been taking naproxen without much relief of symptoms. Patient denies any headache, neck pain, back pain, chest pain, shortness of breath, dizziness, weakness, abdominal pain, nausea, vomiting, or difficulties with bowel movements or urination. - Related Data Home Medications Medication Instructions Recorded Confirmed Albuterol Inhaler [Ventolin Hfa 1 - 2 puff INHALATION RT-Q6H PRN 09/20/14 Inhaler] Loratadine [Claritin] 10 mg PO DAILY PRN 04/23/15 07/06/17 Albuterol Nebulized [Ventolin 2.5 mg INHALATION RT-Q6H PRN 10/25/16 07/06/17 Nebulized] Ipratropium [place] [Atrovent Hfa] 2 puff INHALATION RT-BID PRN 10/25/16 Omeprazole [PriLOSEC] 20 mg PO BID PRN 10/25/16 07/06/17 Ergocalciferol (Vitamin D2) 50,000 unit PO CHU 05/01/17 07/06/17 [Vitamin D2] Acetaminophen Tab [Tylenol Tab] 650 mg PO Q6H PRN 07/02/17 07/06/17 Cyclobenzaprine [Flexeril] 10 mg PO BID 07/02/17 07/06/17 Diclofenac Sodium [Voltaren] 75 mg PO BID 07/02/17 07/06/17 Ferrous Sulfate [Feosol] 650 mg PO DAILY 07/02/17 07/06/17 Previous Rx's Medication Instructions Recorded predniSONE 50 mg PO DAILY #3 tab 07/06/17 Lidocaine 5% Oint [Xylocaine 5% 1 applic TOPICAL DAILY PRN #1 tube 08/23/17 Oint] Methocarbamol [Robaxin] 500 mg PO TID #20 tab 08/23/17 Allergies Allergy/AdvReac Type Severity Reaction Status Date / Time No Known Allergies Allergy Verified 10/17/17 00:09 Review of Systems ROS Statement: Those systems with pertinent positive or pertinent negative responses have been documented in the HPI. ROS Other: All systems not noted in ROS Statement are negative. Past Medical History Past Medical History: Asthma, GERD/Reflux Additional Past Medical History / Comment(s): bipolar, test pos for TB, however has had testing and yrly xray with neg results since 2002, pt states she has several herniated/bulging discs in lower back History of Any Multi-Drug Resistant Organisms: None Reported Past Surgical History: Tubal Ligation, Uterine Ablation Additional Past Surgical History / Comment(s): D&C, cervical biopsy Past Psychological History: Bipolar Smoking Status: Former smoker Past Alcohol Use History: Occasional Past Drug Use History: Marijuana General Exam Limitations: no limitations General appearance: alert, in no apparent distress, other (this is a well- developed, well-nourished adult female patient in no acute distress. Vital signs upon presentation are temperature 98.2F, pulse 85, respirations 18, blood pressure 123/64, pulse ox 99% on room air.) Eye exam: Present: normal appearance, PERRL, EOMI. Absent: scleral icterus, conjunctival injection, periorbital swelling ENT exam: Present: normal exam, normal oropharynx, mucous membranes moist Respiratory exam: Present: normal lung sounds bilaterally. Absent: respiratory distress, wheezes, rales, rhonchi, stridor Cardiovascular Exam: Present: regular rate, normal rhythm, normal heart sounds. Absent: systolic murmur, diastolic murmur, rubs, gallop, clicks Extremities exam: Present: full ROM, normal capillary refill, joint swelling ( left knee swelling), other (left knee does appear to be mildly swollen. There is no bony tenderness. No erythema or evidence of cellulitis. Patient has full range of motion without limitation. There is no laxity with valgus or varus maneuvers. Skin is pink, warm, and dry. Cap refills less than 3 seconds. Pedal and posttibial pulses are 2+ and equal bilaterally.). Absent: normal inspection, tenderness, pedal edema, calf tenderness Neurological exam: Present: alert, oriented X3, CN II-XII intact Psychiatric exam: Present: normal affect, normal mood Skin exam: Present: warm, dry, intact, normal color. Absent: rash Course Vital Signs 10/17/17 00:06 Temperature 98.2 F Pulse Rate 85 Respiratory 18 Rate Blood Pressure 123/64 O2 Sat by Pulse 99 Oximetry Medical Decision Making - Medical Decision Making 42-year-old female patient presented to the emergency department today for evaluation of left knee pain and swelling. Physical examination was relatively unremarkable, patient had full range of motion, no evidence of cellulitis or joint inflammation. X-ray showed spur formation but no osseous abnormalities. I did discuss findings with the patient discussing her symptoms could be related to arthritis. We did give her an Guido wrap. She is instructed to continue taking her anti-inflammatory pain medication. She is instructed to follow-up with her primary care physician for further evaluation. Return parameters discussed in detail. She verbalizes understanding and agreed with this plan. - Radiology Data Radiology results: report reviewed, image reviewed 3 views of the left knee are obtained. Report was reviewed in its entirety. Impression by Dr. Bonilla shows hypertrophic degenerative spur formation without significant joint space narrowing. This has progressed slightly compared to old exam. No fracture. Disposition Clinical Impression: Swelling of left knee joint, Osteoarthritis of left knee Disposition: HOME SELF-CARE Condition: Good Instructions: Osteoarthritis (ED), Swollen Knee Joint (ED) Additional Instructions: Use Guido wrap for compression and support. Follow-up with your primary care physician for further evaluation. Return here immediately for any new, worsening, or concerning symptoms. Is patient prescribed a controlled substance at d/c from ED?: No Referrals: Aislinn Aviles MD [Primary Care Provider] - 1-2 days Time of Disposition: 01:27
== END 2017-10-17 01:39 | disposition home or self-care (01) ==
LOC: EC 00:03
DX: M17.12 Unilateral primary osteoarthritis, left knee (principal); M25.462 Effusion, left knee; M76.892 Other specified enthesopathies of left lower limb, excluding foot; J45.909 Unspecified asthma, uncomplicated; K21.9 Gastro-esophageal reflux disease without esophagitis; M51.26 Other intervertebral disc displacement, lumbar region; Z87.891 Personal history of nicotine dependence; Z79.1 Long term (current) use of non-steroidal anti-inflammatories (NSAID); Z79.899 Other long term (current) drug therapy
CPT/HCPCS: 73562; 99283; 96372; J1885

== ENCOUNTER → 2017-12-11 | Outpatient (CLI) | payer OTHER ==
--- NOTE | 2017-12-11 14:58 | US ---
EXAMINATION TYPE: US pelvis complete transvag DATE OF EXAM: 12/11/2017 COMPARISON: US, CT CLINICAL HISTORY: R10.2 PELVIC PAIN. Right pelvic pain once per month; endometrial ablation; ; in termittent vaginal spotting with right pelvic pain TECHNIQUE: Transvaginal (TV) and Transabdominal (TA) . Transabdominal sonographic images of the pel vis were acquired. Transvaginal sonographic images were medically necessary to better assess the fol lowing anatomy: endometrium and myometrial cyst Date of LMP: patient stated has been post menopausal for years EXAM MEASUREMENTS: Uterus: 7.6 x 5.5 x 4.3 cm Endometrial Stripe: 0.5 cm transvaginally Right Ovary: 3.0 x 4.2 x 1.7 cm TA US Left Ovary: 3.7 x 2.8 x 2.2 cm TA US 1. Uterus: Anteverted; myometrial cyst in upper uterus near endometrium and size = 0.5 x 0.7 x 0.5cm ; multiple Nabothian Cysts in cervix with largest = 0.4 x 0.4 x 0.3cm and small calcifications also s een in cervix 2. Endometrium: thickness appears wnl for possible post menopausal status 3. Right Ovary: multiple follicles with largest = 0.6 x 0.6 x 0.4cm 4. Left Ovary: multiple follicles with largest as complex cyst (possible hemorrhagic and involuting = 1.6 x 1.7 x 1.4cm with peripheral ring of color flow Spectral, color and waveform doppler imaging shows good arterial and venous flow within the ovaries ; there is no evidence for ovarian torsion. 5. Bilateral Adnexa: wnl 6. Posterior cul-de-sac: wnl IMPRESSION: 1. Typically benign myometrial cysts although these can be associated with adenomyosis. Additionally there is heterogeneity of the myometrium and therefore if there is further concern for adenomyosis pe lvic MR could be performed to measure the junctional zone. 2. Endometrial thickness is overall within normal limits for a pre or postmenopausal female. 3. Complex left ovarian follicle with thin internal septations and peripheral vascular flow, likely r elating to an involuting hemorrhagic cyst.
== END | disposition home or self-care (01) ==
LOC: RADUSWWP 13:38
PROVIDERS: ATTEND Obstetrics & Gynecology
DX: N80.0 Endometriosis of uterus (principal); R93.8 Abnormal findings on diagnostic imaging of other specified body structures
CPT/HCPCS: 76830; 76856

== ENCOUNTER 2017-12-12 13:08 | Emergency (ER) | payer OTHER ==
[2017-12-12 13:25] VITALS: BP 106/72; PULSE 89; RESP 18; TEMP 98.4
[2017-12-12] MEDS ORDERED: PROPARACAINE 0.5% OPHTH DROPS 15 ML BTL ONE (13:49)
[2017-12-12] MEDS ORDERED: PROPARACAINE 0.5% OPHTH DROPS 15 ML BTL BOTH EYES STA (14:03)
--- NOTE | 2017-12-12 14:19 | ED ---
General Adult HPI - General Chief complaint: Eye Problems Stated complaint: RT EYE PROBLEMS Time Seen by Provider: 12/12/17 13:44 Source: patient, RN notes reviewed Mode of arrival: ambulatory Limitations: no limitations - History of Present Illness Initial comments: 42-year-old female presents to the emergency department for a chief complaint of right eye irritation. Patient states her eye felt irritated for the past 3 days. She states her right eye has been draining. Patient states at night it "gets crusty and sticks closed." Patient denies any sensations in her left eye. Patient denies any fevers or chills. Patient denies any visual changes or headache. Patient states that since she has been in the emergency department she has felt a foreign body sensation in her right eye. Patient denies any injuries to the right eye.Patient has no other complaints at this time including shortness of breath, chest pain, abdominal pain, nausea or vomiting, headache, or visual changes. - Related Data Home Medications Medication Instructions Recorded Confirmed Albuterol Inhaler [Ventolin Hfa 1 - 2 puff INHALATION RT-Q6H PRN 09/20/14 Inhaler] Loratadine [Claritin] 10 mg PO DAILY PRN 04/23/15 12/12/17 Albuterol Nebulized [Ventolin 2.5 mg INHALATION RT-Q6H PRN 10/25/16 12/12/17 Nebulized] Ipratropium [place] [Atrovent Hfa] 2 puff INHALATION RT-BID PRN 10/25/16 Omeprazole [PriLOSEC] 20 mg PO BID PRN 10/25/16 12/12/17 Ergocalciferol (Vitamin D2) 50,000 unit PO CHU 05/01/17 12/12/17 [Vitamin D2] Acetaminophen Tab [Tylenol Tab] 650 mg PO Q6H PRN 07/02/17 12/12/17 Cyclobenzaprine [Flexeril] 10 mg PO BID 07/02/17 12/12/17 Diclofenac Sodium [Voltaren] 75 mg PO BID 07/02/17 12/12/17 Ferrous Sulfate [Feosol] 650 mg PO DAILY 07/02/17 12/12/17 FLUoxetine HCL [PROzac] 10 mg PO HS 12/12/17 12/12/17 Magnesium Oxide [Mag-Ox] 400 mg PO DAILY 12/12/17 12/12/17 Previous Rx's Medication Instructions Recorded Methocarbamol [Robaxin] 500 mg PO TID #20 tab 08/23/17 Erythromycin Ophth Oint [Romycin 1 applic RIGHT EYE QID 7 Days gm 12/12/17 Ophth Oint] Allergies Allergy/AdvReac Type Severity Reaction Status Date / Time No Known Allergies Allergy Verified 12/12/17 13:55 Review of Systems ROS Statement: Those systems with pertinent positive or pertinent negative responses have been documented in the HPI. ROS Other: All systems not noted in ROS Statement are negative. Past Medical History Past Medical History: Asthma, GERD/Reflux Additional Past Medical History / Comment(s): bipolar, test pos for TB, however has had testing and yrly xray with neg results since 2002, pt states she has several herniated/bulging discs in lower back History of Any Multi-Drug Resistant Organisms: None Reported Past Surgical History: Tubal Ligation, Uterine Ablation Additional Past Surgical History / Comment(s): D&C, cervical biopsy Past Psychological History: Bipolar Smoking Status: Former smoker Past Alcohol Use History: Occasional Past Drug Use History: Marijuana General Exam Limitations: no limitations General appearance: alert, in no apparent distress Head exam: Present: atraumatic, normocephalic, normal inspection Eye exam: Present: normal appearance, PERRL, EOMI, other (serous drainage noted from right eye, eye was stained with fluorescein stain and Wood's lamp was used to visualize the cornea. Patient does have a small corneal abrasion at about 7: 00 on the right eye. Both lids were flipped and eye was inspected thoroughly for any foreign body. None was found. Negative Gayle sign with Wood's lamp.) . Absent: scleral icterus, conjunctival injection (no conjunctiva noted of right eye), nystagmus, periorbital swelling, periorbital tenderness ENT exam: Present: normal exam, mucous membranes moist Neck exam: Present: normal inspection, full ROM. Absent: tenderness, meningismus, lymphadenopathy Respiratory exam: Present: normal lung sounds bilaterally. Absent: respiratory distress, wheezes, rales, rhonchi, stridor Cardiovascular Exam: Present: regular rate, normal rhythm, normal heart sounds. Absent: systolic murmur, diastolic murmur, rubs, gallop, clicks Neurological exam: Present: alert, oriented X3, CN II-XII intact Psychiatric exam: Present: normal affect, normal mood Course Vital Signs 12/12/17 13:21 Temperature 98.4 F Pulse Rate 89 Respiratory 18 Rate Blood Pressure 106/72 O2 Sat by Pulse 98 Oximetry Medical Decision Making - Medical Decision Making 42-year-old female since to the emergency department for a chief complaint of irritation to the right eye for the past 3 days. Patient states she has been experiencing discharge from the right eye. She states it has been crusting at night. On exam no erythema noted of conjunctiva. Eyelids were both flipped and eye was thoroughly inspected for any foreign body. None was found. Eye was then stained with fluorescein stain and visualized with Wood's lamp which did reveal a small corneal abrasion at 7:00 on the right eye. Visual acuity was 20 out of 40 in the right eye and 20 out of 50 in the left eye. Patient is likely experiencing pain from corneal abrasion. She was given a prescription for erythromycin ointment. Her tetanus is up-to-date 3 years ago. She will follow up with primary care and ophthamology. She will return to the emergency Department if she has any worsening symptoms. Disposition Clinical Impression: Corneal abrasion, right Disposition: HOME SELF-CARE Condition: Good Instructions: Corneal Abrasion (ED) Additional Instructions: Please use erythromycin ointment as directed. Please follow-up with primary care in 1-2 days. Follow up with ophthalmology as well. Return to the emergency department if you have any worsening symptoms. Prescriptions: Erythromycin Ophth Oint [Romycin Ophth Oint] 1 applic RIGHT EYE QID 7 Days gm Is patient prescribed a controlled substance at d/c from ED?: No Referrals: Aislinn Aviles MD [Primary Care Provider] - 1-2 days Time of Disposition: 14:48
== END 2017-12-12 14:56 | disposition home or self-care (01) ==
LOC: EC 13:08
DX: S05.01XA Injury of conjunctiva and corneal abrasion without foreign body, right eye, initial encounter (principal); J45.909 Unspecified asthma, uncomplicated; K21.9 Gastro-esophageal reflux disease without esophagitis; F31.9 Bipolar disorder, unspecified; Z87.891 Personal history of nicotine dependence; Z79.1 Long term (current) use of non-steroidal anti-inflammatories (NSAID); Z79.899 Other long term (current) drug therapy; X58.XXXA Exposure to other specified factors, initial encounter
CPT/HCPCS: 99283

== ENCOUNTER 2018-02-06 12:59 | Emergency (ER) | payer OTHER ==
[2018-02-06] MEDS ORDERED: SODIUM CHLORIDE 0.9% 1,000 ML IV STA (13:46)
[2018-02-06] MEDS ORDERED: METOCLOPRAMIDE 5 MG/ML 2 ML VIAL IVP STA (13:46)
[2018-02-06] MEDS ORDERED: KETOROLAC 30 MG/ML 1 ML VIAL IVP STA (13:46)
--- NOTE | 2018-02-06 13:49 | ED ---
General Adult HPI - General Chief complaint: Headache Stated complaint: Headache Time Seen by Provider: 02/06/18 13:33 Source: patient, RN notes reviewed, old records reviewed Mode of arrival: ambulatory Limitations: no limitations - History of Present Illness Initial comments: 42-year-old female presenting for evaluation of headache. Patient does have headache history, she has both tension and migraine headaches. She admits that she is under more stress lately and believes this is causing her headache. Denies photophobia, denies nausea vomiting. Denies focal numbness or weakness. Denies vision changes. Headache is primarily occipital and the back of her neck. No fever or chills. She did take aspirin this morning which improved her symptoms but did not totally alleviate her headache. No chest pain, no abdominal pain. - Related Data Home Medications Medication Instructions Recorded Confirmed Loratadine [Claritin] 10 mg PO DAILY PRN 04/23/15 02/06/18 Albuterol Nebulized [Ventolin 2.5 mg INHALATION RT-Q6H PRN 10/25/16 02/06/18 Nebulized] Ipratropium [place] [Atrovent Hfa] 2 puff INHALATION RT-BID PRN 10/25/16 Ergocalciferol (Vitamin D2) 50,000 unit PO CHU 05/01/17 02/06/18 [Vitamin D2] Diclofenac Sodium [Voltaren] 75 mg PO BID 07/02/17 02/06/18 FLUoxetine HCL [PROzac] 10 mg PO HS 12/12/17 02/06/18 Magnesium Oxide [Mag-Ox] 400 mg PO HS 12/12/17 02/06/18 Aspirin EC [Ecotrin] 325 mg PO DAILY 02/06/18 02/06/18 Cyclobenzaprine [Flexeril] 5 mg PO TID 02/06/18 02/06/18 Allergies Allergy/AdvReac Type Severity Reaction Status Date / Time No Known Allergies Allergy Verified 02/06/18 13:37 Review of Systems ROS Statement: Those systems with pertinent positive or pertinent negative responses have been documented in the HPI. ROS Other: All systems not noted in ROS Statement are negative. Past Medical History Past Medical History: Asthma, GERD/Reflux Additional Past Medical History / Comment(s): bipolar, test pos for TB, however has had testing and yrly xray with neg results since 2002, pt states she has several herniated/bulging discs in lower back History of Any Multi-Drug Resistant Organisms: None Reported Past Surgical History: Tubal Ligation, Uterine Ablation Additional Past Surgical History / Comment(s): D&C, cervical biopsy Past Psychological History: Bipolar Smoking Status: Former smoker Past Alcohol Use History: Occasional Past Drug Use History: Marijuana General Exam Limitations: no limitations General appearance: alert, in no apparent distress Head exam: Present: atraumatic, normocephalic Eye exam: Present: normal appearance, PERRL, EOMI. Absent: periorbital swelling , periorbital tenderness ENT exam: Present: normal exam Neck exam: Present: normal inspection, tenderness (Paraspinal tenderness), full ROM. Absent: meningismus Respiratory exam: Present: normal lung sounds bilaterally. Absent: respiratory distress, wheezes Cardiovascular Exam: Present: regular rate, normal rhythm GI/Abdominal exam: Present: soft. Absent: distended, tenderness Extremities exam: Present: normal inspection, normal capillary refill. Absent: pedal edema Neurological exam: Present: alert, oriented X3, CN II-XII intact, normal gait. Absent: motor sensory deficit Psychiatric exam: Present: normal affect, normal mood Skin exam: Present: warm, dry, intact. Absent: cyanosis, diaphoretic Course Vital Signs 02/06/18 13:00 Temperature 98.4 F Pulse Rate 88 Respiratory 16 Rate Blood Pressure 123/80 O2 Sat by Pulse 98 Oximetry Medical Decision Making - Medical Decision Making 42-year-old presenting with headache. Symptoms are consistent with tension headache. Patient does have headache history and this is typical of her previous headaches. No alarming features on history or physical exam. Patient is well-appearing with a nonfocal neurologic exam and stable vitals. She is given pain medication including Toradol, Reglan, and IV fluids. On reevaluation she is feeling better. CBC and CMP are obtained CBC is within normal limits, CMP shows elevated potassium which is 7.4 however there is slight hemolysis. I ordered repeat BMP to determine if this is accurate. Patient declines blood draw. She is eager for discharge. She does not want any further testing or evaluation. Her headache is resolved. She will follow- up with her primary care physician regarding his lab abnormality. My suspicion is this is just a lab abnormality. - Lab Data Result diagrams: 02/06/18 14:09 02/06/18 15:04 Lab Results 02/06/18 02/06/18 Range/Units 14:09 15:04 WBC 6.4 (3.8-10.6) k/uL RBC 4.10 (3.80-5.40) m/uL Hgb 12.2 (11.4-16.0) gm/dL Hct 37.5 (34.0-46.0) % MCV 91.4 (80.0-100.0) fL MCH 29.7 (25.0-35.0) pg MCHC 32.5 (31.0-37.0) g/dL RDW 12.7 (11.5-15.5) % Plt Count 296 (150-450) k/uL Neutrophils % 59 % Lymphocytes % 33 % Monocytes % 5 % Eosinophils % 2 % Basophils % 1 % Neutrophils # 3.7 (1.3-7.7) k/uL Lymphocytes # 2.1 (1.0-4.8) k/uL Monocytes # 0.3 (0-1.0) k/uL Eosinophils # 0.2 (0-0.7) k/uL Basophils # 0.0 (0-0.2) k/uL Sodium 138 (137-145) mmol/L Potassium 7.4 H* (3.5-5.1) mmol/L Chloride 112 H (98-107) mmol/L Carbon Dioxide 23 (22-30) mmol/L Anion Gap 3 mmol/L BUN 14 (7-17) mg/dL Creatinine 0.69 (0.52-1.04) mg/dL Est GFR (CKD-EPI)AfAm >90 (>60 ml/min/1.73 sqM) Est GFR (CKD-EPI)NonAf >90 (>60 ml/min/1.73 sqM) Glucose 77 (74-99) mg/dL Calcium 8.2 L (8.4-10.2) mg/dL Total Bilirubin 1.7 H (0.2-1.3) mg/dL AST 48 H (14-36) U/L ALT 13 (9-52) U/L Alkaline Phosphatase 45 (38-126) U/L Total Protein 7.6 (6.3-8.2) g/dL Albumin 4.2 (3.5-5.0) g/dL Disposition Clinical Impression: Tension headache Disposition: HOME SELF-CARE Condition: Good Instructions: Acute Headache (ED) Additional Instructions: Please follow up with primary care physician for repeat potassium testing. Is patient prescribed a controlled substance at d/c from ED?: No Referrals: Aislinn Aviles MD [Primary Care Provider] - 1-2 days Time of Disposition: 15:45
[2018-02-06 14:27] LABS: Basophils % (A) 1 %; Eosinophils # (A) 0.2 k/uL (0-0.7); Eosinophils % (A) 2 %; HCT 37.5 % (34.0-46.0); HGB 12.2 gm/dL (11.4-16.0); Lymphocytes # (A) 2.1 k/uL (1.0-4.8); Lymphocytes % (A) 33 %; MCH 29.7 pg (25.0-35.0); MCHC 32.5 g/dL (31.0-37.0); MCV 91.4 fL (80.0-100.0); Mean Platelet Volume 7.3; Monocytes # (A) 0.3 k/uL (0-1.0); Monocytes % (A) 5 %; Neutrophils # (A) 3.7 k/uL (1.3-7.7); Neutrophils % (A) 59 %; Platelet Count 296 k/uL (150-450); RDW 12.7 % (11.5-15.5); WBC 6.4 k/uL (3.8-10.6)
[2018-02-06 15:24] LABS: ALT 13 U/L (9-52); AST 48 U/L (14-36); Albumin 4.2 g/dL (3.5-5.0); Alkaline Phosphatase 45 U/L (38-126); Anion Gap 3 mmol/L; Blood Urea Nitrogen 14 mg/dL (7-17); Calcium 8.2 mg/dL (8.4-10.2); Carbon Dioxide 23 mmol/L (22-30); Chloride 112 mmol/L (98-107); Glucose 77 mg/dL (74-99); Sodium 138 mmol/L (137-145); Total Bilirubin 1.7 mg/dL (0.2-1.3); Total Protein 7.6 g/dL (6.3-8.2)
[2018-02-06 15:30] LABS: Potassium 7.4 mmol/L (3.5-5.1)
[2018-02-06 15:51] VITALS: BP 129/86; PULSE 92; RESP 18; TEMP 98.9
== END 2018-02-06 15:51 | disposition home or self-care (01) ==
LOC: EC 12:59
DX: G44.209 Tension-type headache, unspecified, not intractable (principal); E87.5 Hyperkalemia; G43.909 Migraine, unspecified, not intractable, without status migrainosus; F31.9 Bipolar disorder, unspecified; Z87.891 Personal history of nicotine dependence; Z79.1 Long term (current) use of non-steroidal anti-inflammatories (NSAID); Z79.82 Long term (current) use of aspirin; Z79.899 Other long term (current) drug therapy; J45.909 Unspecified asthma, uncomplicated
CPT/HCPCS: 36415; 80053; 85025; 99284; 96374; 96375; 96361; J2765; J1885

== ENCOUNTER 2018-02-28 11:50 | Emergency (ER) | payer OTHER ==
[2018-02-28 11:56] VITALS: BP 111/71; PULSE 94; RESP 18; TEMP 98.2
--- NOTE | 2018-02-28 12:33 | ED ---
General Adult HPI - General Chief complaint: Upper Respiratory Infection Stated complaint: congestion Time Seen by Provider: 02/28/18 12:03 Source: patient, RN notes reviewed Mode of arrival: ambulatory Limitations: no limitations - History of Present Illness Initial comments: 42-year-old female presents to the emergency department for a chief complaint of congestion 6 hours. Patient states she woke up this morning with sinus congestion and pressure. Patient states she also has a mild headache. She states this was a slow onset throughout the morning. Patient states she thinks his headache is related to congestion. She denies ear pain, sore throat, or cough. Patient states she was not sure what to take for the congestions was presented to the emergency department. She states she had Claritin at home but did not think it would help. Patient has no other complaints at this time including shortness of breath, chest pain, abdominal pain, nausea or vomiting, or visual changes. - Related Data Home Medications Medication Instructions Recorded Confirmed Loratadine [Claritin] 10 mg PO DAILY PRN 04/23/15 02/06/18 Albuterol Nebulized [Ventolin 2.5 mg INHALATION RT-Q6H PRN 10/25/16 02/06/18 Nebulized] Ipratropium [place] [Atrovent Hfa] 2 puff INHALATION RT-BID PRN 10/25/16 Ergocalciferol (Vitamin D2) 50,000 unit PO CHU 05/01/17 02/06/18 [Vitamin D2] Diclofenac Sodium [Voltaren] 75 mg PO BID 07/02/17 02/06/18 FLUoxetine HCL [PROzac] 10 mg PO HS 12/12/17 02/06/18 Magnesium Oxide [Mag-Ox] 400 mg PO HS 12/12/17 02/06/18 Aspirin EC [Ecotrin] 325 mg PO DAILY 02/06/18 02/06/18 Cyclobenzaprine [Flexeril] 5 mg PO TID 02/06/18 02/06/18 Previous Rx's Medication Instructions Recorded Fluticasone Propionate [Flonase 1 spray EA NOSTRIL DAILY 3 Days ml 02/28/18 Allergy Relief] guaiFENesin [Mucinex] 600 mg PO Q12HR PRN #20 tablet.er 02/28/18 Allergies Allergy/AdvReac Type Severity Reaction Status Date / Time No Known Allergies Allergy Verified 02/28/18 11:56 Review of Systems ROS Statement: Those systems with pertinent positive or pertinent negative responses have been documented in the HPI. ROS Other: All systems not noted in ROS Statement are negative. Past Medical History Past Medical History: Asthma, GERD/Reflux Additional Past Medical History / Comment(s): bipolar, test pos for TB, however has had testing and yrly xray with neg results since 2002, pt states she has several herniated/bulging discs in lower back History of Any Multi-Drug Resistant Organisms: None Reported Past Surgical History: Tubal Ligation, Uterine Ablation Additional Past Surgical History / Comment(s): D&C, cervical biopsy Past Psychological History: Bipolar Smoking Status: Former smoker Past Alcohol Use History: Occasional Past Drug Use History: Marijuana General Exam Limitations: no limitations General appearance: alert, in no apparent distress Head exam: Present: atraumatic, normocephalic, normal inspection Eye exam: Present: normal appearance, PERRL, EOMI. Absent: scleral icterus, conjunctival injection, periorbital swelling ENT exam: Present: normal exam, normal oropharynx, mucous membranes moist, TM's normal bilaterally, normal external ear exam, other (Patient has mild tenderness to maxillary sinuses and frontal sinuses when palpated) Neck exam: Present: normal inspection, full ROM. Absent: tenderness, meningismus, lymphadenopathy Respiratory exam: Present: normal lung sounds bilaterally. Absent: respiratory distress, wheezes, rales, rhonchi, stridor Cardiovascular Exam: Present: regular rate, normal rhythm, normal heart sounds. Absent: systolic murmur, diastolic murmur, rubs, gallop, clicks Extremities exam: Present: full ROM (Moving all extremities without difficulty) Neurological exam: Present: alert, oriented X3, CN II-XII intact Expanded Patient oriented to: Present: person, place, time Speech: Present: fluid speech Cranial nerves: EOM's Intact: Normal, Tongue Deviation: Normal, Nystagmus: Normal, Facial Sensation: Normal Cerebellar function: Finger to Nose: Normal, Romberg: Normal Upper motor neuron: Pronator Drift: Normal Sensory exam: Upper Extremity Light Touch: Normal, Upper Extremity Pin Prick: Normal, Lower Extremity Light Touch: Normal, Lower Extremity Pin Prick: Normal Motor strength exam: RUE: 5, LUE: 5, RLE: 5, LLE: 5 Eye Response: (4) open spontaneously Motor Response: (6) obeys commands Verbal Response: (5) oriented [place] Total: 15 Psychiatric exam: Present: normal affect, normal mood Skin exam: Present: warm, dry, intact, normal color. Absent: rash Course Vital Signs 02/28/18 11:53 Temperature 98.2 F Pulse Rate 94 Respiratory 18 Rate Blood Pressure 111/71 O2 Sat by Pulse 100 Oximetry Medical Decision Making - Medical Decision Making 42-year-old female with a chief complaint of sinus congestion 6 hours. Patient states she woke up feeling somewhat congested. She states this has been going around her work. Patient denies fevers or chills. Patient denies cough, sore throat, or ear pain. On exam she does have some minor tenderness of the maxillary and frontal sinuses. Patient also admits to mild headache and generalized. This was a slow onset of headache throughout the morning. No focal neuro deficits on exam. Headache is likely related to sinus pressure as it started with the onset of sinusitis. Sinusitis is likely viral in nature. Low likelihood for a bacterial infection as symptoms have only been present for 6 hours, patient is afebrile, there is no edema noted of maxillary area. She will be treated with Mucinex and Motrin. Patient was educated to return to the emergency Department if she has fevers or chills or any worsening symptoms. She was educated to return if sinusitis lasts greater than 10 days. She will follow up with primary care in 1-2 days. Disposition Clinical Impression: Sinusitis Disposition: HOME SELF-CARE Condition: Good Instructions: Upper Respiratory Infection (ED) Additional Instructions: Please take Mucinex as needed for congestion. Please use nasal spray as needed for congestion. Please follow-up with primary care provider in one to 2 days. Return to the emergency department if you have any worsening symptoms. Prescriptions: Fluticasone Propionate [Flonase Allergy Relief] 1 spray EA NOSTRIL DAILY 3 Days ml guaiFENesin [Mucinex] 600 mg PO Q12HR PRN #20 tablet.er PRN Reason: Congestion Is patient prescribed a controlled substance at d/c from ED?: No Referrals: Aislinn Aviles MD [Primary Care Provider] - 1-2 days Time of Disposition: 12:47
[2018-02-28] MEDS ORDERED: IBUPROFEN 600 MG TAB PO STA (12:42)
== END 2018-02-28 12:54 | disposition home or self-care (01) ==
LOC: EC 11:50
DX: J32.9 Chronic sinusitis, unspecified (principal); J45.909 Unspecified asthma, uncomplicated; F31.9 Bipolar disorder, unspecified; Z87.891 Personal history of nicotine dependence; Z79.1 Long term (current) use of non-steroidal anti-inflammatories (NSAID); Z79.82 Long term (current) use of aspirin; Z79.899 Other long term (current) drug therapy; Z87.39 Personal history of other diseases of the musculoskeletal system and connective tissue
CPT/HCPCS: 99283

== ENCOUNTER 2018-05-09 12:02 | Emergency (ER) | payer OTHER ==
[2018-05-09 12:09] VITALS: RESP 18
[2018-05-09] MEDS ORDERED: KETOROLAC 30 MG/ML 1 ML VIAL IVP STA (12:58)
[2018-05-09] MEDS ORDERED: SODIUM CHLORIDE 0.9% 1,000 ML IV STA (12:58)
[2018-05-09] MEDS ORDERED: diphenhydrAMINE 50 MG/ML 1 ML VIAL IVP STA (12:58)
[2018-05-09] MEDS ORDERED: METOCLOPRAMIDE 5 MG/ML 2 ML VIAL IVP STA (12:58)
--- NOTE | 2018-05-09 13:12 | ED ---
General Adult HPI - General Chief complaint: Headache Stated complaint: yani Source: patient, RN notes reviewed, old records reviewed Mode of arrival: ambulatory Limitations: no limitations - History of Present Illness Initial comments: 42-year-old female patient past medical history of migraine headaches, tension headaches, carpal tunnel, chronic back pain presents to ED with 1 day of headache. Patient reports that when she woke up she had a mild headache in her occipital region today. He states that this feels similar to headaches that she has had in the past. Patient denies that this is the worst headache of her life. Patient denies thunderclap onset. Patient denies any nausea vomiting and diarrhea. Patient states that she was that [facility] approximately one month ago for a similar headache however that occurrence was much more severe. Patient states that this headache is located in a similar region. Patient states that she has some minor sensitivity to light. 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 Patient denies changes in vision. Patient denies neck stiffness, fever or chills. Patient denies chest pain, shortness of breath, abdominal pain. Patient has a tubal ligation. Patient denies all other complaints. Systemic: Pt denies fatigue, myalgia, fever/chills, rash. Pt denies weakness, night sweats, weight loss. Neuro: Pt denies visual disturbances, syncope or pre-syncope. HEENT: Pt denies ocular discharge or irritation, otalgia, rhinorrhea, pharyngitis or notable lymphadenopathy. Cardiopulmonary: Pt denies chest pain, SOB, heart palpitations, dyspnea on exertion. Abdominal/GI: Pt denies abdominal pain, n/v/d. : Pt denies dysuria, burning w/ urination, frequency/urgency. Denies new onset urinary or bowel incontinence. MSK: Pt denies myalgia, loss of strength or function in extremities. Neuro: Pt denies new onset weakness, paresthesias. - Related Data Home Medications Medication Instructions Recorded Confirmed Loratadine [Claritin] 10 mg PO DAILY PRN 04/23/15 02/06/18 Albuterol Nebulized [Ventolin 2.5 mg INHALATION RT-Q6H PRN 10/25/16 02/06/18 Nebulized] Ipratropium [place] [Atrovent Hfa] 2 puff INHALATION RT-BID PRN 10/25/16 Ergocalciferol (Vitamin D2) 50,000 unit PO CHU 05/01/17 02/06/18 [Vitamin D2] Diclofenac Sodium [Voltaren] 75 mg PO BID 07/02/17 02/06/18 FLUoxetine HCL [PROzac] 10 mg PO HS 12/12/17 02/06/18 Magnesium Oxide [Mag-Ox] 400 mg PO HS 12/12/17 02/06/18 Aspirin EC [Ecotrin] 325 mg PO DAILY 02/06/18 02/06/18 Cyclobenzaprine [Flexeril] 5 mg PO TID 02/06/18 02/06/18 Previous Rx's Medication Instructions Recorded Fluticasone Propionate [Flonase 1 spray EA NOSTRIL DAILY 3 Days ml 02/28/18 Allergy Relief] guaiFENesin [Mucinex] 600 mg PO Q12HR PRN #20 tablet.er 02/28/18 Allergies Allergy/AdvReac Type Severity Reaction Status Date / Time No Known Allergies Allergy Verified 05/09/18 12:09 Review of Systems ROS Statement: Those systems with pertinent positive or pertinent negative responses have been documented in the HPI. ROS Other: All systems not noted in ROS Statement are negative. Past Medical History Past Medical History: Asthma, GERD/Reflux Additional Past Medical History / Comment(s): bipolar, test pos for TB, however has had testing and yrly xray with neg results since 2002, pt states she has several herniated/bulging discs in lower back History of Any Multi-Drug Resistant Organisms: None Reported Past Surgical History: Tubal Ligation, Uterine Ablation Additional Past Surgical History / Comment(s): D&C, cervical biopsy Past Psychological History: Bipolar Smoking Status: Former smoker Past Alcohol Use History: Occasional Past Drug Use History: Marijuana General Exam - General Exam Comments Initial Comments: Constitutional: NAD, AOX3, Pt has pleasant affect. HEENT: NC/AT, trachea midline, neck supple, no lymphadenopathy. Posterior pharynx non erythematous, without exudates. External ears appear normal, without discharge. Mucous membranes moist. Eyes PERRLA, EOM intact. There is no scleral icterus. No pallor noted. Cardiopulmonary: RRR, no murmurs, rubs or gallops, no JVD noted. Lungs CTAB in anterior and posterior [place]. No peripheral edema. Abdominal exam: Abdomen soft and non-distended. Abdomen non-tender to palpation in all 4 quadrants. Bowel sounds active in LLQ. No hepatosplenomegaly. No ecchymosis Neuro: CN II-XII intact. No nuchal rigidity. Kernigs and Brudzinski negative. Full active ROM in neck. MSK: No posterior calf tenderness bilaterally, homans sign negative bilaterally. Posterior tibialis and radial pulse +2 bilaterally. Sensation intact in upper and lower extremities. Full active ROM in upper and lower extremities, 5/5 strength. No cervical spinal tenderness. Limitations: no limitations Course Vital Signs 05/09/18 12:07 Temperature 97.8 F Pulse Rate 84 Respiratory 18 Rate Blood Pressure 108/70 O2 Sat by Pulse 100 Oximetry Medical Decision Making - Medical Decision Making 42-year-old female patient past medical history of migraine headaches, tension headaches, carpal tunnel, chronic back pain presents to ED with 1 day of headache. Patient reports that when she woke up she had a mild headache in her occipital region today. He states that this feels similar to headaches that she has had in the past. Patient denies that this is the worst headache of her life. Patient denies thunderclap onset. Patient denies any nausea vomiting and diarrhea. Patient states that she was that [facility] approximately one month ago for a similar headache however that occurrence was much more severe. Patient states that this headache is located in a similar region. Patient states that she has some minor sensitivity to light. Denies all other complaints. Pt VSS, afebrile. Physical exam revealed normal neurologic examination, eyes PERRLA, EOM intact. Patient improved with Toradol, Benadryl, Reglan. Patient states the headache is resolved. Pt asymptomatic. Repeat neuro exam was within normal limits. Patient to follow up with primary care provider in 1-2 days. Patient to return to ED if new signs symptoms develop, if headache returns, any other new symptoms. Case discussed in depth with Dr. Lara. Disposition Clinical Impression: Migraine headache Disposition: HOME SELF-CARE Condition: Good Instructions: Acute Headache (ED) Additional Instructions: Patient to adhere to previously discussed treatment plan and will take medication(s) as directed. Patient to follow up with PCP in 1-2 days. Patient to return to ED if symptoms do not improve. Is patient prescribed a controlled substance at d/c from ED?: No Referrals: Aislinn Aviles MD [Primary Care Provider] - 1-2 days Time of Disposition: 14:21
[2018-05-09 14:42] VITALS: BP 107/77; PULSE 73; TEMP 98.3
== END 2018-05-09 14:42 | disposition home or self-care (01) ==
LOC: EC 12:02
DX: G43.909 Migraine, unspecified, not intractable, without status migrainosus (principal); J45.909 Unspecified asthma, uncomplicated; G89.29 Other chronic pain; F31.9 Bipolar disorder, unspecified; Z87.891 Personal history of nicotine dependence; Z79.1 Long term (current) use of non-steroidal anti-inflammatories (NSAID); Z79.82 Long term (current) use of aspirin; Z79.899 Other long term (current) drug therapy; Z98.51 Tubal ligation status
CPT/HCPCS: 99284; 96374; 96375 ×2; 96361 ×2; J1200; J2765; J1885

== ENCOUNTER 2019-02-03 18:38 | Emergency (ER) | payer OTHER ==
[2019-02-03 18:43] VITALS: BP 114/72; PULSE 84; RESP 20; TEMP 97.7
--- NOTE | 2019-02-03 19:53 | ED ---
Lower Extremity Injury HPI - General Chief Complaint: Extremity Injury, Lower Stated Complaint: pain behind rt knee Time Seen by Provider: 02/03/19 18:57 Source: patient Mode of arrival: ambulatory Limitations: no limitations - History of Present Illness Initial Comments: Patient is a 43-year-old female presenting to emergency Department with complaints of right knee pain that has been ongoing for a couple weeks now. Patient denies any injuries or trauma to the knee. Patient states her pain is in the anterior portion knee as well as in the hamstring area. Patient does have arthritis in her left knee. Patient denies fever, chills. Denies history of gout. Patient is able to ambulate. No other complaint at this time. Upon arrival to the ER, vital signs are stable. - Related Data Home Medications Medication Instructions Recorded Confirmed Loratadine [Claritin] 10 mg PO DAILY PRN 04/23/15 02/06/18 Albuterol Nebulized [Ventolin 2.5 mg INHALATION RT-Q6H PRN 10/25/16 02/06/18 Nebulized] Ipratropium [place] [Atrovent Hfa] 2 puff INHALATION RT-BID PRN 10/25/16 02/06/18 Ergocalciferol (Vitamin D2) 50,000 unit PO CHU 05/01/17 02/06/18 [Vitamin D2] Diclofenac Sodium [Voltaren] 75 mg PO BID 07/02/17 02/06/18 FLUoxetine HCL [PROzac] 10 mg PO HS 12/12/17 02/06/18 Magnesium Oxide [Mag-Ox] 400 mg PO HS 12/12/17 02/06/18 Aspirin EC [Ecotrin] 325 mg PO DAILY 02/06/18 02/06/18 Cyclobenzaprine [Flexeril] 5 mg PO TID 02/06/18 02/06/18 Previous Rx's Medication Instructions Recorded Fluticasone Propionate [Flonase 1 spray EA NOSTRIL DAILY 3 Days ml 02/28/18 Allergy Relief] guaiFENesin [Mucinex] 600 mg PO Q12HR PRN #20 tablet.er 02/28/18 Allergies Allergy/AdvReac Type Severity Reaction Status Date / Time No Known Allergies Allergy Verified 02/03/19 18:43 Review of Systems ROS Statement: Those systems with pertinent positive or pertinent negative responses have been documented in the HPI. ROS Other: All systems not noted in ROS Statement are negative. Past Medical History Past Medical History: Asthma, GERD/Reflux Additional Past Medical History / Comment(s): bipolar, test pos for TB, however has had testing and yrly xray with neg results since 2002, pt states she has several herniated/bulging discs in lower back History of Any Multi-Drug Resistant Organisms: None Reported Past Surgical History: Tubal Ligation, Uterine Ablation Additional Past Surgical History / Comment(s): D&C, cervical biopsy Past Psychological History: Bipolar Smoking Status: Former smoker Past Alcohol Use History: Occasional Past Drug Use History: Marijuana General Exam - General Exam Comments Initial Comments: GENERAL: Well-appearing, well-nourished and in no acute distress. HEAD: Atraumatic, normocephalic. EYES: Pupils equal round and reactive to light, extraocular movements intact, sclera anicteric, conjunctiva are normal. LUNGS: Breath sounds clear to auscultation bilaterally and equal. No wheezes rales or rhonchi. HEART: Regular rate and rhythm without murmurs, rubs or gallops. ABDOMEN: Soft, nontender, normoactive bowel sounds. : Deferred EXTREMITIES: Mild pain to palpation of the anterior aspect of the right knee, hamstrings. Patient has 5 out of 5 strength in the lower extremities bilaterally. Patient has full range of motion of the right knee. Neurovascular intact. NEUROLOGICAL: Cranial nerves II through XII grossly intact. Normal speech, normal gait. PSYCH: Normal mood, normal affect. SKIN: Warm, Dry, normal turgor, no rashes or lesions noted. Limitations: no limitations Course Vital Signs 02/03/19 18:39 Temperature 97.7 F Pulse Rate 84 Respiratory 20 Rate Blood Pressure 114/72 O2 Sat by Pulse 99 Oximetry Medical Decision Making - Medical Decision Making Patient is a 43-year-old female presenting with right knee pain x 3 weeks. X- rays reveal no acute fracture-dislocations. It was discussed her pain is most likely related to arthritis as well as a possible hamstring strain. Patient will use heat and/or ice for pain relief. Patient will continue with NSAIDs for pain relief. Patient is stable for discharge at this time and she's agreement with this plan of care. Disposition Clinical Impression: Right knee pain Disposition: HOME SELF-CARE Condition: Stable Instructions (If sedation given, give patient instructions): Knee Pain (ED) Additional Instructions: Please return to the Emergency Department if symptoms worsen or any other concerns. Follow-up with PCP if symptoms persist. Use NSAIDs for pain relief. May also try heat and/or ice to the area. Is patient prescribed a controlled substance at d/c from ED?: No Referrals: Aislinn Aviles MD [Primary Care Provider] - 1-2 days
--- NOTE | 2019-02-03 19:56 | XR ---
EXAMINATION TYPE: XR knee complete RT DATE OF EXAM: 02/03/2019 COMPARISON: NONE HISTORY: Knee pain TECHNIQUE: 3 views FINDINGS: There is spurring of the medial femoral and tibial condyles. I see no fracture nor dislocat ion. There is slight narrowing of the medial joint space. IMPRESSION: Mild osteoarthritis. No fracture seen.
== END 2019-02-03 19:59 | disposition home or self-care (01) ==
LOC: EC 18:38
DX: M25.561 Pain in right knee (principal); M17.12 Unilateral primary osteoarthritis, left knee; J45.909 Unspecified asthma, uncomplicated; F31.9 Bipolar disorder, unspecified; Z87.891 Personal history of nicotine dependence; Z79.1 Long term (current) use of non-steroidal anti-inflammatories (NSAID); Z79.82 Long term (current) use of aspirin; Z79.899 Other long term (current) drug therapy
CPT/HCPCS: 99283

== ENCOUNTER 2019-03-27 16:15 | Emergency (ER) | payer OTHER ==
[2019-03-27 16:27] VITALS: RESP 18; TEMP 98.1
[2019-03-27] MEDS ORDERED: HYDROcodone/APAP 5-325MG 1 EACH TAB PO STA (16:46)
--- NOTE | 2019-03-27 17:03 | XR ---
EXAMINATION TYPE: XR knee complete RT DATE OF EXAM: 03/27/2019 CLINICAL HISTORY: Pain. TECHNIQUE: Three views of the right knee are obtained. COMPARISON: Prior right knee x-ray February 03, 2019. FINDINGS: There is no acute fracture/dislocation evident in right knee. Mild to moderate tricompartm ent joint space loss and spurring is redemonstrated. The overlying soft tissue appears unremarkable. IMPRESSION: As above. No significant change from prior.
--- NOTE | 2019-03-27 17:30 | ED ---
Extremity Problem HPI - General Chief complaint: Extremity Problem,Nontraumatic Stated complaint: RT KNEE PAIN Time Seen by Provider: 03/27/19 16:39 Source: patient, RN notes reviewed Mode of arrival: ambulatory Limitations: no limitations - History of Present Illness Initial comments: 43-year-old female presents emergency dept chief complaint right knee pain. This has been worsening ongoing bleeding. Patient states swollen. She is scheduled for an injection to her right knee. Patient has not seen orthopedic physician for this. Denies any trauma denies any laxity. Denies any Pain or Swelling. No hip pain no fevers or chills. She does not wear any knee brace. - Related Data Home Medications Medication Instructions Recorded Confirmed Loratadine [Claritin] 10 mg PO DAILY PRN 04/23/15 02/06/18 Albuterol Nebulized [Ventolin 2.5 mg INHALATION RT-Q6H PRN 10/25/16 02/06/18 Nebulized] Ipratropium [place] [Atrovent Hfa] 2 puff INHALATION RT-BID PRN 10/25/16 02/06/18 Ergocalciferol (Vitamin D2) 50,000 unit PO CHU 05/01/17 02/06/18 [Vitamin D2] Diclofenac Sodium [Voltaren] 75 mg PO BID 07/02/17 02/06/18 FLUoxetine HCL [PROzac] 10 mg PO HS 12/12/17 02/06/18 Magnesium Oxide [Mag-Ox] 400 mg PO HS 12/12/17 02/06/18 Aspirin EC [Ecotrin] 325 mg PO DAILY 02/06/18 02/06/18 Cyclobenzaprine [Flexeril] 5 mg PO TID 02/06/18 02/06/18 Previous Rx's Medication Instructions Recorded Fluticasone Propionate [Flonase 1 spray EA NOSTRIL DAILY 3 Days ml 02/28/18 Allergy Relief] guaiFENesin [Mucinex] 600 mg PO Q12HR PRN #20 tablet.er 02/28/18 Acetaminophen-Codeine 300-30mg 1 tab PO Q4H PRN #12 tablet 03/27/19 [Tylenol #3] Allergies Allergy/AdvReac Type Severity Reaction Status Date / Time No Known Allergies Allergy Verified 03/27/19 16:27 Review of Systems ROS Statement: Those systems with pertinent positive or pertinent negative responses have been documented in the HPI. ROS Other: All systems not noted in ROS Statement are negative. Past Medical History Past Medical History: Asthma, GERD/Reflux, Osteoarthritis (OA) Additional Past Medical History / Comment(s): bipolar, test pos for TB, however has had testing and yrly xray with neg results since 2002, pt states she has several herniated/bulging discs in lower back History of Any Multi-Drug Resistant Organisms: None Reported Past Surgical History: Tubal Ligation, Uterine Ablation Additional Past Surgical History / Comment(s): D&C, cervical biopsy Past Psychological History: Bipolar Smoking Status: Former smoker Past Alcohol Use History: Occasional Past Drug Use History: Marijuana General Exam Limitations: no limitations General appearance: alert, in no apparent distress Head exam: Present: atraumatic, normocephalic, normal inspection Neck exam: Present: normal inspection. Absent: tenderness, meningismus, lymphad enopathy Respiratory exam: Present: normal lung sounds bilaterally. Absent: respiratory distress, wheezes, rales, rhonchi, stridor Cardiovascular Exam: Present: regular rate, normal rhythm, normal heart sounds. Absent: systolic murmur, diastolic murmur, rubs, gallop, clicks Extremities exam: Present: other (Right knee there is mild swelling, pain with range of motion no laxity neurovascular intact no exam above and below the right knee) Course Vital Signs 03/27/19 16:25 Temperature 98.1 F Pulse Rate 90 Respiratory 18 Rate Blood Pressure 125/81 O2 Sat by Pulse 96 Oximetry Medical Decision Making - Medical Decision Making X-ray shows mild to moderate tender changes. Patient will be given a prescription for pain medication advised follow-up with her PCP and return for any worsening symptoms. Patient also was provided on-call orthopedics. Disposition Clinical Impression: Arthritis of right knee Disposition: HOME SELF-CARE Condition: Stable Instructions (If sedation given, give patient instructions): Knee Pain (ED) Additional Instructions: Please return to the Emergency Department if symptoms worsen or any other concerns. Prescriptions: Acetaminophen-Codeine 300-30mg [Tylenol #3] 1 tab PO Q4H PRN #12 tablet PRN Reason: pain Is patient prescribed a controlled substance at d/c from ED?: Yes When asked, does pt state using other controlled substances?: Yes If prescribed controlled substance>3 days was MAPS reviewed?: Prescribed <3 Days If opioid is for acute pain is fill amount 7 days or less?: Yes If Rx opioid, was Start Talking consent form obtained?: Yes Referrals: Aislinn Aviles MD [Primary Care Provider] - 1-2 days Time of Disposition: 17:29
[2019-03-27 17:42] VITALS: BP 127/90; PULSE 83
== END 2019-03-27 17:45 | disposition home or self-care (01) ==
LOC: EC 16:15
DX: M17.11 Unilateral primary osteoarthritis, right knee (principal); J45.909 Unspecified asthma, uncomplicated; F31.9 Bipolar disorder, unspecified; Z87.891 Personal history of nicotine dependence; Z79.1 Long term (current) use of non-steroidal anti-inflammatories (NSAID); Z79.82 Long term (current) use of aspirin; Z79.899 Other long term (current) drug therapy; Z87.39 Personal history of other diseases of the musculoskeletal system and connective tissue
CPT/HCPCS: 99283

== ENCOUNTER 2019-04-04 16:57 | Emergency (ER) | payer OTHER ==
[2019-04-04 17:27] VITALS: BP 118/68; PULSE 80; RESP 18; TEMP 97.8
[2019-04-04] MEDS ORDERED: HYDROcodone/APAP 5-325MG 1 EACH TAB PO STA (17:38)
[2019-04-04] MEDS ORDERED: ACET/COD 300 MG/30 MG STARTER PACK 6 TAB BTL PO STA (17:38)
--- NOTE | 2019-04-04 17:38 | ED ---
Lower Extremity Injury HPI - General Chief Complaint: Extremity Injury, Lower Stated Complaint: Rt knee pain Time Seen by Provider: 04/04/19 17:33 Source: patient, RN notes reviewed Mode of arrival: ambulatory Limitations: no limitations - History of Present Illness Initial Comments: 43-year-old female presented to the emergency Department with chief complaint of right knee pain. This has been ongoing issue. Patient was recently seen she's had multiple images in the past that shows evidence of arthritis. She is scheduled for a cortisone injection. She states that she just cannot tolerate the pain after working long hours this weekend. Patient has no paresthesias no new trauma denies any redness. She does state the swelling has dissipated c ompared to prior. - Related Data Home Medications Medication Instructions Recorded Confirmed Loratadine [Claritin] 10 mg PO DAILY PRN 04/23/15 02/06/18 Albuterol Nebulized [Ventolin 2.5 mg INHALATION RT-Q6H PRN 10/25/16 02/06/18 Nebulized] Ipratropium [place] [Atrovent Hfa] 2 puff INHALATION RT-BID PRN 10/25/16 02/06/18 Ergocalciferol (Vitamin D2) 50,000 unit PO CHU 05/01/17 02/06/18 [Vitamin D2] Diclofenac Sodium [Voltaren] 75 mg PO BID 07/02/17 02/06/18 FLUoxetine HCL [PROzac] 10 mg PO HS 12/12/17 02/06/18 Magnesium Oxide [Mag-Ox] 400 mg PO HS 12/12/17 02/06/18 Aspirin EC [Ecotrin] 325 mg PO DAILY 02/06/18 02/06/18 Cyclobenzaprine [Flexeril] 5 mg PO TID 02/06/18 02/06/18 Previous Rx's Medication Instructions Recorded Fluticasone Propionate [Flonase 1 spray EA NOSTRIL DAILY 3 Days ml 02/28/18 Allergy Relief] guaiFENesin [Mucinex] 600 mg PO Q12HR PRN #20 tablet.er 02/28/18 Acetaminophen-Codeine 300-30mg 1 tab PO Q4H PRN #12 tablet 03/27/19 [Tylenol #3] Allergies Allergy/AdvReac Type Severity Reaction Status Date / Time No Known Allergies Allergy Verified 04/04/19 17:24 Review of Systems ROS Statement: Those systems with pertinent positive or pertinent negative responses have been documented in the HPI. ROS Other: All systems not noted in ROS Statement are negative. Past Medical History Past Medical History: Asthma, GERD/Reflux, Osteoarthritis (OA) Additional Past Medical History / Comment(s): bipolar, test pos for TB, however has had testing and yrly xray with neg results since 2002, pt states she has several herniated/bulging discs in lower back History of Any Multi-Drug Resistant Organisms: None Reported Past Surgical History: Tubal Ligation, Uterine Ablation Additional Past Surgical History / Comment(s): D&C, cervical biopsy Past Psychological History: Bipolar Smoking Status: Former smoker Past Alcohol Use History: Occasional Past Drug Use History: Marijuana General Exam Limitations: no limitations General appearance: alert, in no apparent distress Head exam: Present: atraumatic, normocephalic, normal inspection Respiratory exam: Present: normal lung sounds bilaterally. Absent: respiratory distress, wheezes, rales, rhonchi, stridor Cardiovascular Exam: Present: regular rate, normal rhythm, normal heart sounds. Absent: systolic murmur, diastolic murmur, rubs, gallop, clicks Extremities exam: Present: other (Right knee full range of motion mild swelling noted, there is small hematoma on the medial aspect leg is neurovascularly intact no laxity noted.) Course Vital Signs 04/04/19 17:24 Temperature 97.8 F Pulse Rate 80 Respiratory 18 Rate Blood Pressure 118/68 O2 Sat by Pulse 97 Oximetry Medical Decision Making - Medical Decision Making Patient will be provided pain control until her appointment on Friday for cortisone injection. We discussed return parameters patient is comfortable with this and which will return for any worsening symptoms Disposition Clinical Impression: Arthritis of right knee, Right knee pain Disposition: HOME SELF-CARE Condition: Stable Instructions (If sedation given, give patient instructions): Knee Pain (ED) Additional Instructions: Please return to the Emergency Department if symptoms worsen or any other concerns. Is patient prescribed a controlled substance at d/c from ED?: No Referrals: Aislinn Aviles MD [Primary Care Provider] - 1-2 days Time of Disposition: 17:38
== END 2019-04-04 17:48 | disposition home or self-care (01) ==
LOC: EC 16:57
DX: M17.11 Unilateral primary osteoarthritis, right knee (principal); S80.01XA Contusion of right knee, initial encounter; Z87.891 Personal history of nicotine dependence; J45.909 Unspecified asthma, uncomplicated; M51.26 Other intervertebral disc displacement, lumbar region; F31.9 Bipolar disorder, unspecified; Z79.1 Long term (current) use of non-steroidal anti-inflammatories (NSAID); Z79.82 Long term (current) use of aspirin; Z79.899 Other long term (current) drug therapy; X50.9XXA Other and unspecified overexertion or strenuous movements or postures, initial encounter; Y93.89 Activity, other specified
CPT/HCPCS: 99283

== ENCOUNTER 2020-08-16 22:17 | Emergency (ER) | payer OTHER ==
[2020-08-16 22:22] VITALS: BP 117/78; PULSE 73; RESP 17; TEMP 98.1
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
== END 2020-08-16 23:09 | disposition home or self-care (01) ==
LOC: EC 22:17
DX: M25.562 Pain in left knee (principal); J45.909 Unspecified asthma, uncomplicated; M19.90 Unspecified osteoarthritis, unspecified site; F12.90 Cannabis use, unspecified, uncomplicated; Z98.51 Tubal ligation status; Z87.891 Personal history of nicotine dependence
CPT/HCPCS: 99283

== ENCOUNTER 2020-09-26 15:20 | Emergency (ER) | payer OTHER ==
[2020-09-26 15:53] VITALS: RESP 16; TEMP 97.7
--- NOTE | 2020-09-26 17:10 | XR ---
Left shoulder HISTORY: Pain 3 views of left shoulder Bone mineralization, joint spaces and alignment are maintained with exception of one view where there is a questionable superior displacement of the distal clavicle in relation to the acromion. Left lucila g apex as visualized is normal. IMPRESSION: No fracture or dislocation. Question acromioclavicular separation, additional imaging cou ld be performed for evaluation
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
[2020-09-26 19:39] VITALS: BP 124/80; PULSE 80
== END 2020-09-26 19:43 | disposition home or self-care (01) ==
LOC: EC 15:20
DX: S46.912A Strain of unspecified muscle, fascia and tendon at shoulder and upper arm level, left arm, initial encounter (principal); J45.909 Unspecified asthma, uncomplicated; K21.9 Gastro-esophageal reflux disease without esophagitis; M19.90 Unspecified osteoarthritis, unspecified site; F41.9 Anxiety disorder, unspecified; F12.90 Cannabis use, unspecified, uncomplicated; Z87.891 Personal history of nicotine dependence; Z79.82 Long term (current) use of aspirin; Z79.51 Long term (current) use of inhaled steroids; X50.0XXA Overexertion from strenuous movement or load, initial encounter
CPT/HCPCS: 99283

== ENCOUNTER 2020-11-03 20:58 | Emergency (ER) | payer OTHER ==
[2020-11-03 21:01] VITALS: BP 119/85; RESP 18; TEMP 97.6
[2020-11-03] MEDS ORDERED: HYDROcodone/APAP 5-325MG 1 EACH TAB PO STA (21:19)
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
--- NOTE | 2020-11-03 21:42 | XR ---
EXAMINATION TYPE: XR ankle complete LT DATE OF EXAM: 11/03/2020 COMPARISON: NONE HISTORY: Pain TECHNIQUE: 3 views FINDINGS: Ankle mortise is anatomic. I see no fracture nor dislocation. Joint spaces are fairly nuha l. There is small plantar calcaneal spur. IMPRESSION: No acute abnormality of the left ankle.
--- NOTE | 2020-11-03 21:43 | XR ---
EXAMINATION TYPE: XR foot complete LT DATE OF EXAM: 11/03/2020 COMPARISON: NONE HISTORY: Pain TECHNIQUE: 3 views FINDINGS: Metatarsals are intact. The toes appear intact. I see no fracture nor dislocation. Joint sp aces are fairly normal. There are no erosions. IMPRESSION: Negative left foot exam. No fracture seen.
[2020-11-03 22:22] VITALS: PULSE 74
[2020-11-03] MEDS ORDERED: ACET/COD 300 MG/30 MG STARTER PACK 6 TAB BTL PO STA (22:24)
== END 2020-11-03 22:32 | disposition home or self-care (01) ==
LOC: EC 20:58
DX: M25.572 Pain in left ankle and joints of left foot (principal); M79.89 Other specified soft tissue disorders; J45.909 Unspecified asthma, uncomplicated; K21.9 Gastro-esophageal reflux disease without esophagitis; F31.9 Bipolar disorder, unspecified; F12.90 Cannabis use, unspecified, uncomplicated; Z87.891 Personal history of nicotine dependence; Z79.1 Long term (current) use of non-steroidal anti-inflammatories (NSAID); Z79.82 Long term (current) use of aspirin
CPT/HCPCS: 99283

== ENCOUNTER 2021-07-22 18:19 | Emergency (ER) | payer OTHER ==
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
[2021-07-22 20:50] VITALS: BP 147/80; PULSE 87; RESP 20; TEMP 98.3
== END 2021-07-22 20:49 | disposition home or self-care (01) ==
LOC: EC 18:19
DX: L30.9 Dermatitis, unspecified (principal); J45.909 Unspecified asthma, uncomplicated; K21.9 Gastro-esophageal reflux disease without esophagitis; M19.90 Unspecified osteoarthritis, unspecified site; F31.9 Bipolar disorder, unspecified; F12.90 Cannabis use, unspecified, uncomplicated; Z87.891 Personal history of nicotine dependence; Z79.82 Long term (current) use of aspirin; Z79.899 Other long term (current) drug therapy
CPT/HCPCS: 99282

== ENCOUNTER 2021-07-28 10:20 | Emergency (ER) | payer OTHER ==
[2021-07-28 10:24] VITALS: RESP 18; TEMP 97.2
[2021-07-28] MEDS ORDERED: KETOROLAC 15 MG/ML 1 ML VIAL IM STA (10:49)
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
--- NOTE | 2021-07-28 12:03 | US ---
EXAMINATION TYPE: US venous doppler duplex LE RT DATE OF EXAM: 07/28/2021 11:50 AM COMPARISON: NONE CLINICAL HISTORY: Posterior thigh pain and calf pain. Right leg pain for the past 2 weeks. SIDE PERFORMED: Right TECHNIQUE: The lower extremity deep venous system is examined utilizing real time linear array sonog jac with graded compression, doppler sonography and color-flow sonography. VESSELS IMAGED: Common Femoral Vein Deep Femoral Vein Greater Saphenous Vein * Femoral Vein Popliteal Vein Small Saphenous Vein * Proximal Calf Veins (* superficial vessels) Right Leg: Negative for DVT Grayscale, color doppler, spectral doppler imaging performed of the deep veins of the right lower ext remity. There is normal flow, compressibility, vascular waveforms. IMPRESSION: No ultrasound evidence for acute DVT in the right lower extremity.
[2021-07-28 12:53] VITALS: BP 124/76; PULSE 85
== END 2021-07-28 12:50 | disposition home or self-care (01) ==
LOC: EC 10:20
DX: S76.311A Strain of muscle, fascia and tendon of the posterior muscle group at thigh level, right thigh, initial encounter (principal); J45.909 Unspecified asthma, uncomplicated; K21.9 Gastro-esophageal reflux disease without esophagitis; M19.90 Unspecified osteoarthritis, unspecified site; F31.9 Bipolar disorder, unspecified; F12.90 Cannabis use, unspecified, uncomplicated; Z87.891 Personal history of nicotine dependence; Z79.51 Long term (current) use of inhaled steroids; Z79.899 Other long term (current) drug therapy; X58.XXXA Exposure to other specified factors, initial encounter
CPT/HCPCS: 93971; 99283; 96372; J1885

== ENCOUNTER 2021-10-03 17:37 | Emergency (ER) | payer OTHER ==
[2021-10-03] MEDS ORDERED: CYCLOBENZAPRINE 10MG STARTER 3 TAB BTL PO STA (18:24)
[2021-10-03] MEDS ORDERED: predniSONE 50 MG TAB PO STA (18:24)
[2021-10-03] MEDS ORDERED: KETOROLAC 15 MG/ML 1 ML VIAL IM STA (18:24)
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
[2021-10-03 18:58] VITALS: BP 112/73; PULSE 71; RESP 16; TEMP 98.1
== END 2021-10-03 19:42 | disposition home or self-care (01) ==
LOC: EC 17:37
DX: M54.16 Radiculopathy, lumbar region (principal); J45.909 Unspecified asthma, uncomplicated; K21.9 Gastro-esophageal reflux disease without esophagitis; M19.90 Unspecified osteoarthritis, unspecified site; F31.9 Bipolar disorder, unspecified; F12.90 Cannabis use, unspecified, uncomplicated; Z87.891 Personal history of nicotine dependence; Z79.51 Long term (current) use of inhaled steroids; Z79.82 Long term (current) use of aspirin; Z79.899 Other long term (current) drug therapy
CPT/HCPCS: 99283; 96372; J1885; J7512

== ENCOUNTER 2021-12-02 23:59 | Emergency (ER) | payer OTHER ==
[2021-12-03 00:09] VITALS: BP 122/79; PULSE 60; RESP 19; TEMP 97.9
[2021-12-03] MEDS ORDERED: HYDROmorphone 1 MG/ML 1 ML SYRINGE IM STA (00:35)
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
--- NOTE | 2021-12-03 01:06 | XR ---
EXAMINATION TYPE: XR knee complete bilateral DATE OF EXAM: 12/03/2021 COMPARISON: NONE HISTORY: Knee pain TECHNIQUE: 6 views FINDINGS: There is bilateral spurring of the patella. There is narrowing of the medial joint spaces o f both knees with spurring of the femoral and tibial condyles. No fracture seen. No evidence of joint effusion. IMPRESSION: Bilateral moderate osteoarthritis for the patient's age. No fracture seen.
== END 2021-12-03 01:50 | disposition home or self-care (01) ==
LOC: EC 23:59
DX: M17.0 Bilateral primary osteoarthritis of knee (principal); J45.909 Unspecified asthma, uncomplicated; K21.9 Gastro-esophageal reflux disease without esophagitis; M19.90 Unspecified osteoarthritis, unspecified site; F31.9 Bipolar disorder, unspecified; Z87.891 Personal history of nicotine dependence; F12.90 Cannabis use, unspecified, uncomplicated; Z91.030 Bee allergy status; Z91.038 Other insect allergy status; Z79.51 Long term (current) use of inhaled steroids; Z79.899 Other long term (current) drug therapy
CPT/HCPCS: 73562; 99283; 96372; J1170

== ENCOUNTER 2021-12-23 14:10 | Emergency (ER) | payer OTHER ==
[2021-12-23 14:28] VITALS: TEMP 98.1
[2021-12-23] MEDS ORDERED: DEXAMETHASONE SOD PHOSPHATE 10 MG/ML 1 ML VIAL IM STA (15:51)
[2021-12-23] MEDS ORDERED: KETOROLAC 15 MG/ML 1 ML VIAL IM STA (15:51)
[2021-12-23] MEDS ORDERED: ORPHENADRINE 30 MG/ML 2 ML VIAL IM STA (15:51)
--- NOTE | 2021-12-23 16:25 | XR ---
EXAMINATION TYPE: XR Hip LT and AP Pelvis DATE OF EXAM: 12/23/2021 COMPARISON: NONE HISTORY: Back pain TECHNIQUE: 3 views FINDINGS: The pelvic ring is intact. The proximal left femur and hip joint appear normal. No fracture seen. Hip joint space is fairly normal. Sacroiliac joints appear normal. IMPRESSION: Negative pelvis and left hip exam.
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
[2021-12-23] MEDS ORDERED: traMADol 50 MG TAB PO STA (16:48)
[2021-12-23] MEDS ORDERED: traMADol 50 MG STARTER PACK 3 TAB BTL PO STA (17:01)
[2021-12-23 17:47] VITALS: BP 107/65; PULSE 78; RESP 16
== END 2021-12-23 17:46 | disposition home or self-care (01) ==
LOC: EC 14:10
DX: S39.012A Strain of muscle, fascia and tendon of lower back, initial encounter (principal); K21.9 Gastro-esophageal reflux disease without esophagitis; M19.90 Unspecified osteoarthritis, unspecified site; J45.909 Unspecified asthma, uncomplicated; Z91.030 Bee allergy status; Z79.899 Other long term (current) drug therapy; Z79.82 Long term (current) use of aspirin; X50.0XXA Overexertion from strenuous movement or load, initial encounter
CPT/HCPCS: 99283; 96372; 73502; J1100; J2360; J1885

== ENCOUNTER 2022-02-14 23:16 | Emergency (ER) | payer OTHER ==
[2022-02-14 23:29] VITALS: RESP 16; TEMP 98.1
[2022-02-15] MEDS ORDERED: ONDANSETRON 4 MG/2 ML VIAL IVP STA (00:11)
[2022-02-15] MEDS ORDERED: SODIUM CHLORIDE 0.9% 1,000 ML IV STA (00:11)
[2022-02-15] MEDS ORDERED: PANTOPRAZOLE 40 MG/10 ML VIAL IVP STA (00:11)
[2022-02-15] MEDS ORDERED: MORPHINE SULFATE 4 MG/ML SYRINGE IV STA (00:11)
[2022-02-15 00:38] LABS: Basophils # (A) 0.1 k/uL (0-0.2); Basophils % (A) 1 %; Eosinophils # (A) 0.2 k/uL (0-0.7); Eosinophils % (A) 2 %; HGB 13.1 gm/dL (11.4-16.0); Lymphocytes # (A) 2.6 k/uL (1.0-4.8); Lymphocytes % (A) 26 %; MCH 31.2 pg (25.0-35.0); MCHC 34.6 g/dL (31.0-37.0); MCV 90.3 fL (80.0-100.0); Mean Platelet Volume 7.5; Monocytes # (A) 0.5 k/uL (0-1.0); Monocytes % (A) 5 %; Neutrophils # (A) 6.5 k/uL (1.3-7.7); Neutrophils % (A) 65 %; Platelet Count 384 k/uL (150-450); RBC 4.21 m/uL (3.80-5.40); RDW 12.4 % (11.5-15.5); WBC 9.9 k/uL (3.8-10.6)
[2022-02-15 00:54] LABS: ALT 15 U/L (4-34); AST 18 U/L (14-36); African American GFR (CKD) >90 (>60 ml/min/1.73 sqM); Albumin 4.4 g/dL (3.5-5.0); Alkaline Phosphatase 91 U/L (38-126); Amylase 54 U/L (30-110); Anion Gap 9 mmol/L; Blood Urea Nitrogen 19 mg/dL (7-17); Calcium 9.5 mg/dL (8.4-10.2); Carbon Dioxide 22 mmol/L (22-30); Chloride 104 mmol/L (98-107); Glucose 91 mg/dL (74-99); Lipase 339 U/L (23-300); Non-African American GFR(CKD) 86 (>60 ml/min/1.73 sqM); Potassium 3.9 mmol/L (3.5-5.1); Sodium 135 mmol/L (137-145); Total Bilirubin 0.2 mg/dL (0.2-1.3); Total Protein 7.1 g/dL (6.3-8.2)
[2022-02-15 00:55] LABS: Partial Thromboplastin Time 28.1 sec (22.0-30.0); Prothrombin Time 10.5 sec (9.0-12.0)
--- NOTE | 2022-02-15 01:16 | US ---
EXAM: US Abdomen Limited, Gallbladder CLINICAL HISTORY: RUQ pain TECHNIQUE: Real-time ultrasound of the right upper quadrant with image documentation. COMPARISON: No relevant prior studies available. FINDINGS: Liver: The liver measures 17.1 cm. Subtle biliary ectasia is suggested. Gallbladder: The gallbladder is only minimally filled. No cholelithiasis. The gallbladder wall measures 2.7 mm. No pericholecystic fluid. There is a reported negative sonographic Cruz sign. Common bile duct: The common bile duct measures 6.7 mm. No stones. No dilation. Pancreas: Unremarkable as visualized. Right kidney: The right kidney measures 9.8 x 5.3 x 4.8 cm. Free fluid: No free fluid. IMPRESSION: 1. The gallbladder is predominantly decompressed. No cholelithiasis or associated sonographic findings to suggest acute cholecystitis. 2. The common bile duct is borderline prominent for the patient's age. Subtle biliary ectasia is suggested. No identifiable choledocholithiasis. Please correlate with bilirubin levels. If there is evidence of biliary stasis, MRCP or endoscopic evaluation is recommended.
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
[2022-02-15 02:11] VITALS: BP 148/79; PULSE 87
== END 2022-02-15 02:11 | disposition home or self-care (01) ==
LOC: EC 23:16
DX: K80.50 Calculus of bile duct without cholangitis or cholecystitis without obstruction (principal); J45.909 Unspecified asthma, uncomplicated; K21.9 Gastro-esophageal reflux disease without esophagitis; M19.90 Unspecified osteoarthritis, unspecified site; Z87.891 Personal history of nicotine dependence; F12.90 Cannabis use, unspecified, uncomplicated; Z91.030 Bee allergy status; Z79.899 Other long term (current) drug therapy; Z79.51 Long term (current) use of inhaled steroids
CPT/HCPCS: 36415; 80053; 82150; 83690; 85025; 85610; 85730; 76705; 99284; 96374; 96375 ×2; 96361 ×2; J2270; J2405; C9113

== ENCOUNTER → 2022-10-18 | Outpatient (CLI) | payer OTHER ==
[2022-10-19 03:01] LABS: Basophils # (A) 0.05 X 10*3/uL (0.00-0.10); Basophils % (A) 0.5 %; Eosinophils # (A) 0.11 X 10*3/uL (0.04-0.35); Eosinophils % (A) 1.2 %; HCT 40.2 % (37.2-46.3); HGB 13.1 d/dL (12.0-15.0); Lymphocytes # (A) 2.43 X 10*3/uL (0.90-5.00); Lymphocytes % (A) 25.6 %; MCHC 32.6 d/dL (32.0-37.0); Monocytes # (A) 0.77 X 10*3/uL (0.20-1.00); Monocytes % (A) 8.1 %; NRBC Per 100 WBC 0 X 10*3/uL (0.00-0.01); Neutrophils # (A) 6.11 X 10*3/uL (1.80-7.70); Neutrophils % (A) 64.4 %; Platelet Count 423 X 10*3/uL (140-440); RBC 4.37 X 10*6/uL (4.10-5.20); RDW 13.1 % (11.5-14.5); WBC 9.49 X 10*3/uL (4.50-10.00)
[2022-10-19 03:35] LABS: Erythrocyte Sedimentation Rate 14 mm/Hr (0-20)
[2022-10-19 04:33] LABS: ALT 15 U/L (8-44); AST 13 U/L (13-35); Albumin 4.6 d/dL (3.8-4.9); Alkaline Phosphatase 68 U/L (41-126); BUN/Creat Ratio 14.38 Ratio (12.00-20.00); Blood Urea Nitrogen 11.5 mg/dL (9.0-27.0); Carbon Dioxide 20.3 mmol/L (21.6-31.8); Chloride 104 mmol/L (96-109); Globulin 2.7 d/dL (1.6-3.3); Glucose 132 mg/dL (70-110); Potassium 4.4 mmol/L (3.5-5.5); Sodium 137 mmol/L (135-145); Total Bilirubin 0.4 mg/dL (0.3-1.2); Total Protein 7.3 d/dL (6.2-8.2)
[2022-10-19 04:37] LABS: Gliadin AB IgA, Deaminated Negative (Negative); Gliadin AB IgA, Unit 0.8 U/mL; Gliadin AB IgG, Deaminated Negative (Negative); Gliadin AB IgG, Unit <0.4 U/mL
== END | disposition home or self-care (01) ==
LOC: LABWHC1 15:23
PROVIDERS: ATTEND Nurse Practitioner Family
DX: K52.9 Noninfective gastroenteritis and colitis, unspecified (principal)
CPT/HCPCS: 36415; 80053; 83516; 85025; 85652; 86140

== ENCOUNTER 2022-10-24 23:59 | Emergency (ER) | payer OTHER ==
[2022-10-25 00:05] VITALS: BP 133/90; PULSE 91; RESP 18; TEMP 98.1
[2022-10-25] MEDS ORDERED: SODIUM CHLORIDE 0.9% 500 ML 500 ML IV STA (01:55)
[2022-10-25] MEDS ORDERED: MORPHINE SULFATE 4 MG/ML SYRINGE IV STA (01:55)
[2022-10-25] MEDS ORDERED: ONDANSETRON 4 MG/2 ML VIAL IVP STA (01:55)
[2022-10-25] MEDS ORDERED: KETOROLAC 15 MG/ML 1 ML VIAL IVP STA (01:56)
[2022-10-25] MEDS ORDERED: DEXAMETHASONE SOD PHOSPHATE 10 MG/ML 1 ML VIAL IVP STA (01:56)
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
[2022-10-25 02:33] LABS: Basophils # (A) 0.1 k/uL (0-0.2); Basophils % (A) 1 %; Eosinophils # (A) 0.2 k/uL (0-0.7); Eosinophils % (A) 3 %; HCT 36.8 % (34.0-46.0); HGB 12.5 gm/dL (11.4-16.0); Lymphocytes # (A) 3.4 k/uL (1.0-4.8); Lymphocytes % (A) 37 %; MCH 31.3 pg (25.0-35.0); MCHC 33.9 g/dL (31.0-37.0); MCV 92.3 fL (80.0-100.0); Mean Platelet Volume 7.4; Monocytes # (A) 0.5 k/uL (0-1.0); Monocytes % (A) 5 %; Neutrophils % (A) 54 %; Platelet Count 384 k/uL (150-450); RBC 3.99 m/uL (3.80-5.40); RDW 12.8 % (11.5-15.5); WBC 9.2 k/uL (3.8-10.6)
[2022-10-25 02:38] LABS: ALT 21 U/L (4-34); AST 24 U/L (14-36); African American GFR (CKD) >90 (>60 ml/min/1.73 sqM); Albumin 4.3 g/dL (3.5-5.0); Alkaline Phosphatase 72 U/L (38-126); Anion Gap 6 mmol/L; Blood Urea Nitrogen 12 mg/dL (7-17); Calcium 9.2 mg/dL (8.4-10.2); Carbon Dioxide 24 mmol/L (22-30); Chloride 107 mmol/L (98-107); Glucose 89 mg/dL (74-99); Magnesium 1.9 mg/dL (1.6-2.3); Non-African American GFR(CKD) >90 (>60 ml/min/1.73 sqM); Phosphorus 3.5 mg/dL (2.5-4.5); Potassium 4.1 mmol/L (3.5-5.1); Sodium 137 mmol/L (137-145); Total Bilirubin 0.2 mg/dL (0.2-1.3); Total Protein 7.3 g/dL (6.3-8.2)
[2022-10-25 03:13] LABS: Appearance,Urine Clear (Clear); Bilirubin,Urine Negative (Negative); Blood,Urine Negative (Negative); Color,Urine Light Yellow; Glucose,Urine (UA) Negative (Negative); Ketones,Urine Negative (Negative); Leukocyte Esterase,Urine Negative (Negative); Nitrite,Urine Negative (Negative); Protein,Urine Negative (Negative); Specific Gravity,Urine 1.008 (1.001-1.035); Urobilinogen,Urine <2.0 mg/dL (<2.0)
--- NOTE | 2022-10-25 08:35 | CT ---
EXAMINATION TYPE: CT abdomen pelvis wo con DATE OF EXAM: 10/25/2022 HISTORY: Lower abdominal and back pain CT DLP: 784 mGycm. Automated Exposure Control for Dose Reduction was Utilized. TECHNIQUE: CT scan of the abdomen and pelvis is performed without oral or IV contrast. COMPARISON: Prior CT 2018 FINDINGS: Within the limitations of a non-contrast study, the following observations are made. LUNG BASES: No significant abnormality is appreciated. LIVER/GB: No significant abnormality is appreciated. PANCREAS: No significant abnormality is seen. SPLEEN: No significant abnormality is seen. ADRENALS: No significant abnormality is seen. KIDNEYS: No renal stones or hydronephrosis is present bilaterally. BOWEL: Normal-appearing appendix from base of cecum in the right pelvis. No suspicious small or large bowel dilatation. GENITAL ORGANS: Anteverted uterus. Occasional scattered tiny pelvic phlebolith. Tubular shaped struct ure in the vaginal canal is consistent with tampon. LYMPH NODES: No greater than 1cm abdominal or pelvic lymph nodes are appreciated. OSSEOUS STRUCTURES: No significant abnormality is seen. OTHER: No significant additional abnormality is seen. IMPRESSION: No renal stones or hydronephrosis is seen bilaterally. No acute findings are evident. No significant change from prior CT.
== END 2022-10-25 05:39 | disposition home or self-care (01) ==
LOC: EC 23:59
DX: S39.012A Strain of muscle, fascia and tendon of lower back, initial encounter (principal); M54.32 Sciatica, left side; F12.90 Cannabis use, unspecified, uncomplicated; Z79.82 Long term (current) use of aspirin; Z91.030 Bee allergy status; Z87.891 Personal history of nicotine dependence; X58.XXXA Exposure to other specified factors, initial encounter
CPT/HCPCS: 36415; 80053; 83735; 84100; 85025; 81003; 74176; 99284; 96374; 96375 ×3; J2270; J1100; J2405; J1885

== ENCOUNTER 2022-11-08 08:00 | Day surgery (SDC) | payer OTHER ==
[2022-11-06 15:23] VITALS: BMI 34.7
[2022-11-08 08:31] VITALS: TEMP 97.7
[2022-11-08] MEDS ORDERED: LACTATED RINGERS 1,000 ML IV ONE (08:32)
[2022-11-08] MEDS ORDERED: PROPOFOL 10 MG/ML 20 ML VIAL IV ONE (09:14)
[2022-11-08] MEDS ORDERED: LIDOCAINE 2% INJ 20 MG/ML (2 ML VIAL) ONE (09:14)
--- NOTE | 2022-11-08 09:35 | P.PCN ---
Date of Procedure: 11/08/22 Procedure(s) Performed: Brief history: Patient is a pleasant 47-year-old white female scheduled for an elective upper endoscopy as well as colonoscopy as a part of evaluation of persistent history of GERD and chronic diarrhea for the last several months duration. Procedure performed: Esophagogastroduodenoscopy with biopsy Colonoscopy with random biopsies Preoperative diagnosis: Long-standing history of GERD Chronic diarrhea Anesthesia: MAC Procedure: After informed consent was obtained from the patient was brought into the endoscopy unit and IV sedation was administered by anesthesia under continuous monitoring. Initially upper endoscopy was done. The Olympus GF 160 video endoscope was inserted inserted into the mouth and esophagus intubated without any difficulty and was gradually advanced into the stomach and duodenum and carefully examined. The bulb and second part of the duodenum appeared normal. The scope was then withdrawn into the stomach adequately insufflated with air and upon careful examination the antrum had mild gastritis and biopsies were done from this area. Mucosa of the body, cardia and fundus appeared normal. The scope was then withdrawn into the esophagus. The GE junction was located at 40 cm to the incisors. It appeared irrgular with superficial erosions consistent with LA grade a reflux esophagitis.st of the esophagus appeared normal. Patient tolerated the procedure well. At this time the patient continued to remain sedation. Initial digital rectal examination was normal. Olympus CF 160 video colonoscope was then inserted into the rectum and gradually advanced to the cecum without any difficulty. Careful examination was performed as the scope was gradually being withdrawn. The prep was excellent. there was a superficial ulceration of the ileocecal valve measuring 5 mm in size that was biopsied. The cecum, ascending colon, appeared normal. In the transverse colon there was a 3 mm polyp that was removed by cold biopsy. Rest of transverse colon, descending colon, sigmoid colon and rectum appeared normal. random biopsies were done from transverse and descending colon to rule out flexible/collagenous colitis. Scattered sigmoidal diagnosis. Retroflexion was performed in the rectum and no lesions were noted. Patient tolerated the procedure well. Impression: 1. Upper endoscopy revealed mild antral gastritis and LA grade a reflux esophagitis 2. Colonoscopy revealed scattered sigmoid diverticulosis, but 3 mm transverse colon polyp status post cold biopsy and a superficial ulceration on the ileocecal valve status post biopsy Recommendations: Findings of this examination were discussed with the patient as well as his family. She was advised to follow with the biopsy results. She'll be seen in office in one week.
[2022-11-08 09:41] VITALS: RESP 17
[2022-11-08] MEDS ORDERED: LACTATED RINGERS 1,000 ML IV SCH (09:44)
[2022-11-08 09:57] VITALS: BP 115/72; PULSE 68
== END 2022-11-08 10:20 | disposition home or self-care (01) ==
LOC: ORWHC2ENDO 08:00
PROVIDERS: ATTEND Internal Medicine Gastroenterology
DX: D12.3 Benign neoplasm of transverse colon (principal); K63.3 Ulcer of intestine; K52.9 Noninfective gastroenteritis and colitis, unspecified; K57.30 Diverticulosis of large intestine without perforation or abscess without bleeding; K29.50 Unspecified chronic gastritis without bleeding; K21.00 Gastro-esophageal reflux disease with esophagitis, without bleeding; K31.89 Other diseases of stomach and duodenum; J45.909 Unspecified asthma, uncomplicated; F31.9 Bipolar disorder, unspecified; F12.90 Cannabis use, unspecified, uncomplicated; Z79.51 Long term (current) use of inhaled steroids; Z79.1 Long term (current) use of non-steroidal anti-inflammatories (NSAID); Z79.899 Other long term (current) drug therapy
CPT/HCPCS: 81025; 88305; 45380; 43239; J2704; J2001

== ENCOUNTER 2022-12-21 15:42 | Emergency (ER) | payer OTHER ==
[2022-12-21 15:47] VITALS: RESP 18; TEMP 97.8
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
[2022-12-21] MEDS ORDERED: predniSONE 20 MG TAB PO STA (16:41)
[2022-12-21] MEDS ORDERED: traMADol 50 MG TAB PO STA (16:41)
[2022-12-21 17:13] VITALS: BP 140/94; PULSE 65
== END 2022-12-21 17:13 | disposition home or self-care (01) ==
LOC: EC 15:42
DX: M25.811 Other specified joint disorders, right shoulder (principal); J45.909 Unspecified asthma, uncomplicated; K21.9 Gastro-esophageal reflux disease without esophagitis; F12.90 Cannabis use, unspecified, uncomplicated; Z86.59 Personal history of other mental and behavioral disorders; Z87.891 Personal history of nicotine dependence; Z79.51 Long term (current) use of inhaled steroids; Z79.899 Other long term (current) drug therapy; Z91.038 Other insect allergy status
CPT/HCPCS: 99283; J7512

== ENCOUNTER 2023-01-10 07:43 | Emergency (ER) | payer OTHER ==
[2023-01-10] MEDS ORDERED: IPRATROPIUM-ALBUTEROL 3 ML NEB INHALATION STA (08:00)
[2023-01-10] MEDS ORDERED: DEXAMETHASONE SOD PHOSPHATE 10 MG/ML 1 ML VIAL IM STA (08:00)
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
--- NOTE | 2023-01-10 08:16 | XR ---
EXAMINATION TYPE: XR chest 2V DATE OF EXAM: 01/10/2023 COMPARISON: 01/09/2013 HISTORY: Chest pain TECHNIQUE: Frontal and lateral views of the chest are obtained. FINDINGS: There is no focal air space opacity. No evidence for pneumothorax. No pleural effusion. The cardiac silhouette size is within normal limits. The osseous structures are grossly intact. IMPRESSION: 1. No acute cardiopulmonary process.
[2023-01-10 09:24] VITALS: PULSE 92
[2023-01-10 09:38] VITALS: BP 129/82; RESP 18; TEMP 98.7
== END 2023-01-10 09:38 | disposition home or self-care (01) ==
LOC: EC 07:43
DX: J06.9 Acute upper respiratory infection, unspecified (principal); J45.909 Unspecified asthma, uncomplicated; K21.9 Gastro-esophageal reflux disease without esophagitis; M19.90 Unspecified osteoarthritis, unspecified site; F31.9 Bipolar disorder, unspecified; F41.9 Anxiety disorder, unspecified; Z87.891 Personal history of nicotine dependence; F12.90 Cannabis use, unspecified, uncomplicated; Z91.038 Other insect allergy status; Z79.51 Long term (current) use of inhaled steroids; Z79.899 Other long term (current) drug therapy; Z20.822 Contact with and (suspected) exposure to COVID-19
CPT/HCPCS: 94640; 87651; 87636; 71046; 99283; 96372; J1100

== ENCOUNTER 2023-02-05 23:39 | Emergency (ER) | payer OTHER ==
[2023-02-05 23:54] VITALS: BP 126/84; PULSE 97; RESP 18; TEMP 97.6
[2023-02-06] MEDS ORDERED: HYDROmorphone 0.5 MG/0.5 ML SYRINGE IM STA (00:10)
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
--- NOTE | 2023-02-06 01:50 | XR ---
EXAM: XR Right Hand Complete, 3 or More Views CLINICAL HISTORY: ITS.REASON XR Reason: laceration TECHNIQUE: Frontal, lateral and oblique views of the right hand. COMPARISON: No relevant prior studies available. FINDINGS: Bones/joints: No acute osseous abnormalities. Soft tissues: Unremarkable. No radiopaque foreign body. IMPRESSION: Unremarkable right hand.
== END 2023-02-06 02:14 | disposition home or self-care (01) ==
LOC: EC 23:39
DX: S61.214A Laceration without foreign body of right ring finger without damage to nail, initial encounter (principal); S61.212A Laceration without foreign body of right middle finger without damage to nail, initial encounter; J45.909 Unspecified asthma, uncomplicated; K21.9 Gastro-esophageal reflux disease without esophagitis; F12.90 Cannabis use, unspecified, uncomplicated; Z79.51 Long term (current) use of inhaled steroids; Z87.891 Personal history of nicotine dependence; Z79.899 Other long term (current) drug therapy; Z86.59 Personal history of other mental and behavioral disorders; W26.8XXA Contact with other sharp object(s), not elsewhere classified, initial encounter
CPT/HCPCS: 12001; 99283; 96372; 73130; J1170

== ENCOUNTER 2023-03-18 09:51 | Emergency (ER) | payer OTHER ==
[2023-03-18 10:21] VITALS: RESP 16
[2023-03-18] MEDS ORDERED: ORPHENADRINE 30 MG/ML 2 ML VIAL IM STA (11:02)
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
[2023-03-18 11:52] VITALS: BP 133/89; PULSE 58; TEMP 98.1
== END 2023-03-18 11:41 | disposition home or self-care (01) ==
LOC: EC 09:51
DX: M54.9 Dorsalgia, unspecified (principal); J45.909 Unspecified asthma, uncomplicated; K21.9 Gastro-esophageal reflux disease without esophagitis; F12.90 Cannabis use, unspecified, uncomplicated; M19.90 Unspecified osteoarthritis, unspecified site; Z79.1 Long term (current) use of non-steroidal anti-inflammatories (NSAID); Z79.899 Other long term (current) drug therapy; Z86.59 Personal history of other mental and behavioral disorders; Z87.891 Personal history of nicotine dependence; Z88.8 Allergy status to other drugs, medicaments and biological substances; Z79.51 Long term (current) use of inhaled steroids
CPT/HCPCS: 99283; 96372; J2360

== ENCOUNTER 2023-07-09 00:27 | Emergency (ER) | payer OTHER ==
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
[2023-07-09] MEDS: ONDANSETRON 4 MG ODT STARTER PACK 2 TAB BTL PO STA (01:50)
[2023-07-09 02:12] VITALS: BP 137/90; PULSE 74; RESP 17; TEMP 97.5
== END 2023-07-09 01:53 | disposition home or self-care (01) ==
LOC: EC 00:27
DX: S06.0X0A Concussion without loss of consciousness, initial encounter (principal); S00.83XA Contusion of other part of head, initial encounter; J45.909 Unspecified asthma, uncomplicated; K21.9 Gastro-esophageal reflux disease without esophagitis; G62.9 Polyneuropathy, unspecified; F12.90 Cannabis use, unspecified, uncomplicated; Z79.51 Long term (current) use of inhaled steroids; Z79.899 Other long term (current) drug therapy; Z91.038 Other insect allergy status; Z87.891 Personal history of nicotine dependence; W22.8XXA Striking against or struck by other objects, initial encounter; Y99.0 Civilian activity done for income or pay
CPT/HCPCS: 99283; S0119

== ENCOUNTER → 2023-07-14 | Outpatient (CLI) | payer OTHER ==
--- NOTE | 2023-07-15 09:21 | MM ---
Reason for Exam: Screening (asymptomatic). Last mammogram was performed 1 year(s) and 1 month(s) ago. Patient History: Menarche at age 14. First Full-Term at age 20. Paternal grandmother had breast cancer. Risk Values: Mercedes 5 year model risk: 0.6%. NCI Lifetime model risk: 6.8%. Prior Study Comparison: 03/05/2013 Bilateral MG 3D diag mammo w/cad [facility] E - 2, Unknown. 06/04/2022 Bilateral MG 3D screening mammo w/cad, [facility]. Tissue Density: The breasts are heterogeneously dense, which may obscure small masses. Findings: Analyzed By CAD. There is no suspicious group of microcalcifications or new suspicious mass in either breast. Asymmetric nodular densities in the central and inner margin the right breast seen best on CC view. Recommend spot compression views. Overall Assessment: Incomplete: need additional imaging evaluation, BI-RAD 0 Management: Diagnostic Mammogram of the right breast. . Patient should continue monthly self-breast exams. A clinical breast exam by your physician is recommended on an annual basis. This exam should not preclude additional follow-up of suspicious palpable abnormalities. Note on Mercedes scores and lifetime risk: 1. A Mercedes score greater than 3% is considered moderate risk. If this is the case, consider specialist referral to assess eligibility for a risk reducing agent. 2. If overall lifetime risk for the development of breast cancer is 20% or higher, the patient may qualify for future screening with alternating mammogram and breast MRI. Electronically signed and approved by: Felipe Mora M.D. Radiologis
== END | disposition home or self-care (01) ==
LOC: RADMAMWWP 16:02
PROVIDERS: ATTEND Family Medicine
DX: Z12.31 Encounter for screening mammogram for malignant neoplasm of breast (principal); Z80.3 Family history of malignant neoplasm of breast
CPT/HCPCS: 77063; 77067

== ENCOUNTER → 2023-07-18 | Outpatient (CLI) | payer OTHER ==
--- NOTE | 2023-07-18 09:01 | MM ---
Reason for Exam: Additional evaluation requested from abnormal screening. Last screening mammogram was performed less than 1 month ago. Patient History: Menarche at age 14. First Full-Term at age 20. Paternal grandmother had breast cancer. Risk Values: Mercedes 5 year model risk: 0.6%. NCI Lifetime model risk: 6.8%. Tissue Density: Right: The breasts are heterogeneously dense, which may obscure small masses. Findings: Analyzed By CAD. Area of concern/asymmetry compresses out on spot compression imaging. No suspicious masses, calcifications or distortions. Overall Assessment: Negative, BI-RAD 1 Management: Screening Mammogram of both breasts in 1 year. Results were given to the patient verbally at the time of exam. Patient should continue monthly self-breast exams. A clinical breast exam by your physician is recommended on an annual basis. This exam should not preclude additional follow-up of suspicious palpable abnormalities. Note on Mercedes scores and lifetime risk: 1. A Mercedes score greater than 3% is considered moderate risk. If this is the case, consider specialist referral to assess eligibility for a risk reducing agent. 2. If overall lifetime risk for the development of breast cancer is 20% or higher, the patient may qualify for future screening with alternating mammogram and breast MRI. Electronically signed and approved by: Bert Rapp DO
== END | disposition home or self-care (01) ==
LOC: RADMAMWWP 08:18
PROVIDERS: ATTEND Family Medicine
DX: R92.331 Mammographic heterogeneous density, right breast (principal); Z80.3 Family history of malignant neoplasm of breast
CPT/HCPCS: 77065; G0279; 77061

== ENCOUNTER 2023-09-24 18:20 | Emergency (ER) | payer OTHER ==
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
[2023-09-24] MEDS: ONDANSETRON 4 MG/2 ML VIAL IVP STA (20:07)
[2023-09-24] MEDS: KETOROLAC 15 MG/ML 1 ML VIAL IVP STA (20:07)
[2023-09-24] MEDS: Acetaminophen-Codeine 300-30mg TAB PO STA (20:13)
[2023-09-24 20:26] LABS: Basophils # (A) 0.1 k/uL (0-0.2); Basophils % (A) 1 %; Eosinophils # (A) 0.2 k/uL (0-0.7); Eosinophils % (A) 2 %; HCT 37.4 % (34.0-46.0); HGB 12.4 gm/dL (11.4-16.0); Lymphocytes # (A) 2.9 k/uL (1.0-4.8); Lymphocytes % (A) 26 %; MCH 30.7 pg (25.0-35.0); MCHC 33.1 g/dL (31.0-37.0); MCV 92.7 fL (80.0-100.0); Mean Platelet Volume 7.6; Monocytes # (A) 0.5 k/uL (0-1.0); Monocytes % (A) 5 %; Neutrophils # (A) 7.4 k/uL (1.3-7.7); Neutrophils % (A) 66 %; Platelet Count 410 k/uL (150-450); RBC 4.03 m/uL (3.80-5.40); RDW 12.3 % (11.5-15.5); WBC 11.3 k/uL (3.8-10.6)
[2023-09-24 20:45] LABS: ALT 10 U/L (4-34); AST 18 U/L (14-36); African American GFR (CKD) >90 (>60 ml/min/1.73 sqM); Albumin 4.2 g/dL (3.5-5.0); Alkaline Phosphatase 58 U/L (38-126); Amylase 43 U/L (30-110); Anion Gap 6 mmol/L; Blood Urea Nitrogen 17 mg/dL (7-17); Calcium 9.4 mg/dL (8.4-10.2); Carbon Dioxide 22 mmol/L (22-30); Chloride 108 mmol/L (98-107); Glucose 80 mg/dL (74-99); Lipase 65 U/L (23-300); Non-African American GFR(CKD) >90 (>60 ml/min/1.73 sqM); Sodium 136 mmol/L (137-145); Total Bilirubin 0.5 mg/dL (0.2-1.3); Total Protein 7.1 g/dL (6.3-8.2)
[2023-09-24 21:20] LABS: Appearance,Urine Clear (Clear); Bilirubin,Urine Negative (Negative); Blood,Urine Moderate (Negative); Color,Urine Light Yellow; Glucose,Urine (UA) Negative (Negative); Ketones,Urine 2+ (Negative); Leukocyte Esterase,Urine Negative (Negative); Mucus,Urine Rare /hpf; Nitrite,Urine Negative (Negative); PH, Urine 6.5 (5.0-8.0); Protein,Urine Negative (Negative); RBC,Urine >182 /hpf (0-5); Specific Gravity,Urine 1.019 (1.001-1.035); Squamous Epithelial Cell,Urine 2 /hpf (0-4); Urobilinogen,Urine <2.0 mg/dL (<2.0); WBC,Urine 1 /hpf (0-5)
--- NOTE | 2023-09-25 01:15 | US ---
EXAM: US Retroperitoneal Limited, Renal CLINICAL HISTORY: ITS.REASON US Reason: right flank and ab pain, hematuria TECHNIQUE: Real-time limited ultrasound of the retroperitoneum with image documentation. COMPARISON: No relevant prior studies available. FINDINGS: Right kidney: Right kidney measures 10.0 cm. No stones. No hydronephrosis. Left kidney: Left kidney measures 11.1 cm. No stones. No hydronephrosis. Bladder: Bladder is not distended but otherwise unremarkable. IMPRESSION: Unremarkable renal ultrasound.
[2023-09-25 03:32] VITALS: BP 130/72; PULSE 78; RESP 18; TEMP 98.1
== END 2023-09-25 00:02 | disposition home or self-care (01) ==
LOC: EC 18:20
DX: N20.0 Calculus of kidney (principal); F12.90 Cannabis use, unspecified, uncomplicated; Z87.891 Personal history of nicotine dependence; Z88.8 Allergy status to other drugs, medicaments and biological substances
CPT/HCPCS: 99284; 96374; 36415; 80053; 82150; 83690; 85025; 81001; 76770; J2405

== ENCOUNTER 2023-12-05 19:16 | Emergency (ER) | payer SELFPAY ==
[2023-12-05] MEDS ORDERED: IBUPROFEN 800 MG TAB ONE (21:14)
[2023-12-05] MEDS ORDERED: HYDROcodone/APAP 5-325MG 1 EACH TAB ONE (21:14)
--- NOTE | 2024-01-04 00:16 | XR ---
EXAMINATION TYPE: XR foot complete RT DATE OF EXAM: 12/05/2023 COMPARISON: 06/21/2017 HISTORY: Pain after injury climbing fence TECHNIQUE: Frontal, lateral and oblique images of the right foot are obtained. FINDINGS: There is no acute fracture/dislocation evident. The joint spaces appear within normal limi ts. Mild soft tissue swelling over the lateral malleolus. Prominent plantar calcaneal enthesophyte. N o radiopaque foreign body. IMPRESSION: 1. There is no acute fracture or dislocation seen. 2. Mild soft tissue swelling over the lateral malleolus. 3. Prominent plantar calcaneal enthesophyte.
--- NOTE | 2024-01-04 00:16 | XR ---
EXAMINATION TYPE: XR ankle complete RT DATE OF EXAM: 12/05/2023 COMPARISON: 06/21/2017 HISTORY: Pain after injury climbing fence TECHNIQUE: Frontal, lateral and oblique images of the right ankle are obtained. FINDINGS: There is no acute fracture/dislocation evident. The joint spaces appear within normal limi ts. Mild soft tissue swelling over the lateral malleolus. Prominent plantar calcaneal enthesophyte. N o radiopaque foreign body. IMPRESSION: 1. There is no acute fracture or dislocation seen. 2. Mild soft tissue swelling over the lateral malleolus. 3. Prominent plantar calcaneal enthesophyte.
== END 2023-12-05 22:38 ==
LOC: EC 19:16
CPT/HCPCS: 99283

== ENCOUNTER 2023-12-17 13:08 | Emergency (ER) | payer OTHER ==
[2023-12-17] MEDS ORDERED: MORPHINE SULFATE 4 MG/ML SYRINGE ONE (15:47)
[2023-12-17] MEDS ORDERED: ACET/COD 300 MG/30 MG STARTER PACK 6 TAB BTL PO ONE (19:35)
--- NOTE | 2024-01-14 15:20 | US ---
Dante Lamb ID: [id number] : 1975 EXAMINATION TYPE: US venous doppler duplex LE LT DATE OF EXAM: 12/17/2023 5:24 PM COMPARISON: NONE CLINICAL INDICATION: 48 year-old female left leg pain after fall SIDE PERFORMED: Left TECHNIQUE: The lower extremity deep venous system is examined utilizing real time linear array sonog jac with graded compression, doppler sonography and color-flow sonography. VESSELS IMAGED: Common Femoral Vein Deep Femoral Vein Greater Saphenous Vein * Femoral Vein Popliteal Vein Small Saphenous Vein * Proximal Calf Veins (* superficial vessels) There is normal flow, compressibility, vascular waveforms. Left Leg: Negative for DVT IMPRESSION: No evidence for DVT within the left lower extremity imaged from the groin to the upper calf.
--- NOTE | 2024-01-26 14:08 | XR ---
Dante Lamb ID: [id number] : 1975 EXAMINATION TYPE: XR ankle complete 3 views LT DATE OF EXAM: 12/17/2023 Comparison: None Clinical History: 48-year-old female pain after fall 2 days ago Findings: There is mild to moderate circumferential soft tissue swelling. Ankle mortise appears congruent with preservation of the distal tibiofibular overlap. Talar dome appears intact. No acute fracture, sublux ation, dislocation seen. Subtalar joint appears aligned. Tiny plantar heel spur. Impression: Some circumferential soft tissue swelling. No underlying acute osseous abnormality seen.
== END 2023-12-17 19:45 | disposition home or self-care (01) ==
LOC: EC 13:08
CPT/HCPCS: 96372; 99284

== ENCOUNTER 2024-04-14 14:55 | Emergency (ER) | payer OTHER ==
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
[2024-04-14] MEDS: KETOROLAC 15 MG/ML 1 ML VIAL IVP STA (15:41)
[2024-04-14 15:59] LABS: Basophils # (A) 0.1 k/uL (0-0.2); Basophils % (A) 0 %; Eosinophils # (A) 0.2 k/uL (0-0.7); Eosinophils % (A) 1 %; HCT 37.8 % (34.0-46.0); HGB 12.6 gm/dL (11.4-16.0); Lymphocytes # (A) 2.6 k/uL (1.0-4.8); Lymphocytes % (A) 16 %; MCH 31.2 pg (25.0-35.0); MCHC 33.2 g/dL (31.0-37.0); MCV 93.9 fL (80.0-100.0); Mean Platelet Volume 7.1; Monocytes # (A) 0.6 k/uL (0-1.0); Monocytes % (A) 4 %; Neutrophils # (A) 12.7 k/uL (1.3-7.7); Neutrophils % (A) 78 %; Platelet Count 474 k/uL (150-450); RBC 4.03 m/uL (3.80-5.40); RDW 12.5 % (11.5-15.5); WBC 16.4 k/uL (3.8-10.6)
[2024-04-14 16:05] LABS: Appearance,Urine Cloudy (Clear); Bacteria,Urine Rare /hpf; Bilirubin,Urine Negative (Negative); Blood,Urine Negative (Negative); Color,Urine Light Yellow; Glucose,Urine (UA) Negative (Negative); Ketones,Urine Negative (Negative); Leukocyte Esterase,Urine Negative (Negative); Mucus,Urine Rare /hpf; Nitrite,Urine Negative (Negative); PH, Urine 6.5 (5.0-8.0); Protein,Urine Negative (Negative); RBC,Urine 1 /hpf (0-5); Specific Gravity,Urine 1.018 (1.001-1.035); Squamous Epithelial Cell,Urine 11 /hpf (0-4); Urobilinogen,Urine <2.0 mg/dL (<2.0); WBC,Urine 2 /hpf (0-5)
[2024-04-14 16:22] LABS: ALT 9 U/L (4-34); AST 15 U/L (14-36); African American GFR (CKD) >90 (>60 ml/min/1.73 sqM); Albumin 4.5 g/dL (3.5-5.0); Alkaline Phosphatase 78 U/L (38-126); Amylase 46 U/L (30-110); Anion Gap 7 mmol/L; Blood Urea Nitrogen 18 mg/dL (7-17); Calcium 10.1 mg/dL (8.4-10.2); Carbon Dioxide 23 mmol/L (22-30); Chloride 107 mmol/L (98-107); Glucose 94 mg/dL (74-99); Lipase 80 U/L (23-300); Non-African American GFR(CKD) >90 (>60 ml/min/1.73 sqM); Potassium 4.3 mmol/L (3.5-5.1); Sodium 137 mmol/L (137-145); Total Bilirubin 0.3 mg/dL (0.2-1.3); Total Protein 7.4 g/dL (6.3-8.2)
--- NOTE | 2024-04-14 17:33 | CT ---
EXAMINATION TYPE: CT abdomen pelvis w con DATE OF EXAM: 04/14/2024 5:07 PM COMPARISON: None CLINICAL INDICATION: Female, 48 years old with history of RLQ ab pain; RLQ abdominal pain and rt side flank pain. TECHNIQUE: Axial CT abdomen pelvis w con;Sagittal and coronal reformats were created on a separate w orkstation. Contrast used:100 ml mL of Isovue 300 with IV Contrast, (none if empty) Oral contrast used: without Oral Contrast (none if empty) CT DLP: 865.4 mGycm, Automated exposure control for dose reduction was used. FINDINGS: LOWER CHEST: Unremarkable ABDOMEN LIVER: Unremarkable GALLBLADDER AND BILE DUCTS: Unremarkable. PANCREAS: Unremarkable. SPLEEN: Unremarkable. ADRENAL GLANDS: Unremarkable. KIDNEYS AND URETERS: No evidence of hydronephrosis or renal calculus. The ureters are unremarkable. PELVIS BLADDER: No evidence for wall thickening or mass given limitations of exam. REPRODUCTIVE: Suspected fibroid changes lower density in the uterine fundus. ABDOMEN & PELVIS STOMACH AND BOWEL: No evidence of bowel obstruction. Scattered colonic diverticula. The appendix is n ormal. PERITONEUM/RETROPERITONEUM: No evidence of pneumoperitoneum or free fluid. VASCULATURE: No evidence of aortic aneurysm. MUSCULOSKELETAL: No acute osseous abnormalities LYMPH NODES: No gross evidence for lymphadenopathy. SOFT TISSUE/ABDOMINAL WALL: Unremarkable IMPRESSION: 1. No evidence for acute abdominal process. Normal-appearing appendix. No obstructive uropathy or re nal calculus. 2. Colonic diverticulosis. [facility], , 04/14/2024 5:30 PM
[2024-04-14 19:35] VITALS: BP 128/78; PULSE 69; RESP 18; TEMP 97.6
== END 2024-04-14 17:54 | disposition home or self-care (01) ==
LOC: EC 14:55
DX: K57.30 Diverticulosis of large intestine without perforation or abscess without bleeding (principal); K58.9 Irritable bowel syndrome, unspecified; Z87.891 Personal history of nicotine dependence; Z91.038 Other insect allergy status
CPT/HCPCS: 36415; 80053; 82150; 83605; 83690; 85025; 81001; 74177; 99284; 96374; J1885; Q9967

== ENCOUNTER 2024-06-01 09:47 | Emergency (ER) | payer OTHER ==
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
[2024-06-01] MEDS: HYDROmorphone 1 MG/ML 1 ML SYRINGE IM STA (10:24)
--- NOTE | 2024-06-01 10:50 | XR ---
EXAMINATION TYPE: XR ribs RT w pa chest xray DATE OF EXAM: 06/01/2024 10:43 AM COMPARISON: None. CLINICAL INDICATION: Female, 48 years old with history of fall, pain, pain TECHNIQUE: 2 view(s) obtained. Exam supplemented with frontal chest FINDINGS: Right ribs appear intact. No displaced rib fractures evident. No pneumothorax evident. Heart size is normal. Pulmonary vasculature is normal. Lungs are clear. No pneumothorax evident. Thor acic spine as visualized appears normal. IMPRESSION: 1. No acute osseous abnormality right ribs are radiographically apparent. [facility], , 06/01/2024 10:47 AM
[2024-06-01 11:36] VITALS: BP 128/78; PULSE 78; RESP 16; TEMP 98
== END 2024-06-01 11:35 | disposition home or self-care (01) ==
LOC: EC 09:47
DX: S20.221A Contusion of right back wall of thorax, initial encounter (principal); Z91.038 Other insect allergy status; Z87.891 Personal history of nicotine dependence; W00.0XXA Fall on same level due to ice and snow, initial encounter
CPT/HCPCS: 71101; 99283; 96372; J1171

== ENCOUNTER 2024-06-22 23:42 | Emergency (ER) | payer OTHER ==
[2024-06-22 23:53] VITALS: RESP 18; TEMP 97.7
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
[2024-06-23] MEDS: KETOROLAC 15 MG/ML 1 ML VIAL IM STA (01:11)
[2024-06-23] MEDS: HYDROmorphone 1 MG/ML 1 ML SYRINGE IM STA (01:14)
[2024-06-23] MEDS: LIDOCAINE 4% PATCH TOPICAL ONE (01:16)
[2024-06-23 01:23] VITALS: BP 131/85; PULSE 85
== END 2024-06-23 01:26 | disposition home or self-care (01) ==
LOC: EC 23:42
DX: M54.50 Low back pain, unspecified (principal); B35.2 Tinea manuum; Z87.891 Personal history of nicotine dependence; Z91.038 Other insect allergy status
CPT/HCPCS: 99283; 96372 ×2; J1171; J1885

== ENCOUNTER 2024-08-11 19:18 | Emergency (ER) | payer OTHER ==
[2024-08-11] MEDS: DEXAMETHASONE SOD PHOSPHATE 10 MG/ML 1 ML VIAL IM STA (20:25)
[2024-08-11] MEDS: HYDROmorphone 0.5 MG/0.5 ML SYRINGE IVP STA (20:26)
[2024-08-11] MEDS: KETOROLAC 15 MG/ML 1 ML VIAL IM STA (20:27)
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
[2024-08-11 20:59] VITALS: BP 122/74; PULSE 71; RESP 18; TEMP 98.1
[2024-08-11] MEDS: ACET/COD 300 MG/30 MG STARTER PACK 6 TAB BTL PO STA (21:35)
== END 2024-08-11 21:36 | disposition home or self-care (01) ==
LOC: EC 19:18
DX: M54.41 Lumbago with sciatica, right side (principal); Z88.8 Allergy status to other drugs, medicaments and biological substances; Z87.891 Personal history of nicotine dependence
CPT/HCPCS: 99283; 96374; 96372 ×2; J1100; J1885; J1171

== ENCOUNTER 2024-08-27 17:40 | Emergency (ER) | payer OTHER ==
[2024-08-27 18:07] VITALS: RESP 18
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
--- NOTE | 2024-08-27 18:50 | XR ---
EXAMINATION TYPE: XR shoulder complete LT DATE OF EXAM: 08/27/2024 6:21 PM COMPARISON: None CLINICAL INDICATION: Female, 49 years old with history of pain, pain TECHNIQUE: XR shoulder complete LT; examined in AP, internally rotated and scapular Y projections. FINDINGS: No evidence of acute osseous pathology, joint dislocation, or soft tissue swelling. The remaining po rtions of the visualized chest are unremarkable. Mild degeneration changes of the acromion and dista l clavicle. IMPRESSION: No acute osseous pathology. [facility], , 08/27/2024 6:48 PM
[2024-08-27 19:27] VITALS: BP 150/88; PULSE 72; TEMP 98.3
[2024-08-27] MEDS: methylPREDNISolone SOD SUCCI 125 MG/2 ML VIAL IM ONE (19:28)
[2024-08-27] MEDS: KETOROLAC 15 MG/ML 1 ML VIAL IM STA (19:31)
[2024-08-27] MEDS: HYDROcodone/APAP 5-325MG 1 EACH TAB PO STA (19:34)
[2024-08-27] MEDS: LIDOCAINE 4% PATCH TOPICAL ONE (19:35)
[2024-08-27] MEDS: ACET/COD 300 MG/30 MG STARTER PACK 6 TAB BTL PO STA (19:37)
== END 2024-08-27 20:26 | disposition home or self-care (01) ==
LOC: EC 17:40
DX: S46.012A Strain of muscle(s) and tendon(s) of the rotator cuff of left shoulder, initial encounter (principal); Z87.891 Personal history of nicotine dependence; Z91.038 Other insect allergy status; X58.XXXA Exposure to other specified factors, initial encounter
CPT/HCPCS: 73030; 99283; 96372; J1885; J2919

== ENCOUNTER 2024-09-03 15:33 | Emergency (ER) | payer SELFPAY ==
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
[2024-09-03] MEDS: HYDROcodone/APAP 5-325MG 1 EACH TAB PO STA (17:48)
[2024-09-03] MEDS: LIDOCAINE 4% PATCH TOPICAL ONE (17:49)
[2024-09-03] MEDS: KETOROLAC 15 MG/ML 1 ML VIAL IM STA (17:51)
[2024-09-03] MEDS: ACET/COD 300 MG/30 MG STARTER PACK 6 TAB BTL PO STA (17:52)
[2024-09-03 17:58] VITALS: BP 174/94; PULSE 66; RESP 20; TEMP 98
== END 2024-09-03 17:58 | disposition home or self-care (01) ==
LOC: EC 15:33
DX: S46.912A Strain of unspecified muscle, fascia and tendon at shoulder and upper arm level, left arm, initial encounter (principal); Z88.8 Allergy status to other drugs, medicaments and biological substances; Z87.891 Personal history of nicotine dependence; X58.XXXA Exposure to other specified factors, initial encounter
CPT/HCPCS: 99283; 96372; J1885